=== PATIENT | female | born 1935 | race Two or more races ===

== ENCOUNTER 2020-05-31 17:46 | Inpatient (IN) | payer MEDICARE, MEDICAID ==
[~2020-05-31] VITALS: Ht 170.2 cm; Wt 62.6 kg
[2020-05-31 17:46] VITALS: BP 129/69
--- NOTE | 2020-05-31 17:46 | NUR ---
ED Nurse Note: Patient ADRIEN [id number] from [facility] due to hematuria onset today. Per EMS, pt was tested positive on 05/12/20. Pt AAOX1, verbally responsive, follows simple command. Divehi speaking only. Respirations even and unlabored, on room air. Afebrile. Covid isolation precaution observed. 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
--- NOTE | 2020-05-31 17:53 | Emergency Room Report ---
History of Present Illness General Chief Complaint: Vaginal Source: Patient Present Illness HPI 85-year-old female brought in by ambulance for complaint of generalized weakness. Patient is from a [place] [facility] facility and tested positive for COVID 3 weeks ago. She is altered and is a poor historian. According to family she is also having gross hematuria. they are concerned about her PEG tube. Patient admits to dysuria but cannot extrapolate. The patient's symptoms were gradual onset, severity was moderate, duration since several days. Quality: Aching Severity: Mild Past medical history: R sacral decub Past surgical history: G Tube Smoking: Denies Alcohol use: Denies Drug use: Denies Review of systems: CONST: +AMS; +Weakness, No fevers or chills, No night sweats PULMONARY: + productive cough, + shortness of breath CARDIAC: No chest pain, No palpitations GI: No vomiting, No diarrhea , No melena_or_BRBPR : No dysuria, + hematuria, No discharge NEURO: No new_focal_weakness_or_numbness, No confusion, No vision changes 14 point Review of Systems is otherwise negative except per HPI Physical Exam: GENERAL: Awake_alert_ nontoxic, no acute distress Spo2 98% on RA -normal EYES: Extraocular muscles are intact. Conjunctivae clear. Lids without swelling ENT: External nose and ear normal_in_appearance. Oropharynx clear. Head_ atraumatic, Moist_oral_mucosa NECK: No JVD. No meningismus. No thyromegaly. Supple. Trachea midline RESP: Course breath sounds bilaterally. Normal respiratory effort. Symmetric rise. No stridor. CARDIAC: Tachycardic. and regular rhythm on_auscultation No_significant pedal edema. ABDOMEN: Soft. Nondistended. Nontender_No_rebound_or_guarding. MSK: Normal muscle tone, without rigidity. Extremities without asymmetric deformity or swelling. SKIN: Warm and dry. No visible cyanosis or pallor NEUROLOGIC: Alert, oriented x1. Motor_and_sensation_grossly_intact. No truncal ataxia. Gait_normal Psych: Normal mood and affect, normal judgment and insight - COORDINATION OF CARE Case was discussed with: Patient , Patient's Family , Patient's Physician Any labs and imaging that were ordered were interpreted as part of the medical decision making: Medical Decision Making/Plan: 85-year-old female here with generalized weakness. Differential diagnosis includes dehydration, hypovolemia, electrolyte derangement such as hyponatremia / hypoglycemia, neuromuscular junction disorder such as myasthenia gravis, GI bleed, anemia, UTI, among others. The patient feels generally weak but has no focal neurologic deficits, abnormal muscle tone, hypo/hyperreflexia, or fatigability. No evidence of stroke, spinal cord emergency, neuromuscular junction disorder, or multiple sclerosis at this time. Lab results are concerning for hyponatremia. Sodium is 123. Likely hypovolemic hyponatremia. Patient was given NS 500 cc bolus. I suspect that this is the etiology for her generalized weakness. He is also found to have gross hematuria. Abraham was inserted without difficulty. UA shows urinary tract infection. Patient is otherwise afebrile. Doubt upper infection. Patient received antibiotics. COVID swab is also positive. Likely another reason why patient is generally weak. I spoke with Dr. Ott, and reviewed the patients presentation, workup, results, and treatment. They will admit the patient for further care and evaluation, and assume care of the patient at this time. 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: Yes - 05/12/20 COVID-19 Screening: Positive COVID-19 COVID-19 Testing Source: SEPARATOR OPERATOR Patient History Last Menstrual Period: na Nursing Documentation-PM Past Medical History: No History, Except For Hx Diabetes: Yes History Of Psychiatric Problem: Yes - dementia Physical Exam Vital Signs Date Time Temp Pulse Resp B/P (MAP) Pulse Ox O2 Delivery O2 Flow Rate FiO2 05/31/20 17:43 98.6 100 18 129/69 (89) 98 Room Air Sp02 EP Interpretation: reviewed, normal Medical Decision Making Diagnostic Impression: Primary Impression: Generalized weakness Additional Impressions: Hyponatremia syndrome Pneumonia due to COVID-19 virus UTI (urinary tract infection) Hematuria Pancreatitis EKG Diagnostic Results EDDIE Hart 12-lead EKG (interpreted by me) Time: 2146 Indication: Rhythm analysis Tracing visualized and Interpreted by me. Rhythm: Sinus tachycardia Rate: 101 bpm QTc: 454 Morphology: No_significant_ST_elevations_or_depressions, No STEMI Impression: Sinus Tachycardia Rhythm Strip Diag. Results Rhythm Strip Time: 21:40 EP Interpretation: yes Rhythm: NSR, no PVC's, no ectopy Chest X-Ray Diagnostic Results Chest X-Ray Diagnostic Results : EDDIE Benavidez Text Chest X-Ray: Views: [ 1 ] view(s) Indication: Generalized weakness Findings: Normal heart size. Mediastinum normal. No infiltrate. Impression: Torturous aorta The X-ray(s) were independently viewed and interpreted contemporaneously Electronically signed by Alexandria bergeron DO Reevaluation Time: 21:41 Last Vital Signs Date Time Temp Pulse Resp B/P (MAP) Pulse Ox O2 Delivery O2 Flow Rate FiO2 05/31/20 17:43 98.6 100 18 129/69 (89) 98 Room Air Status: improved Disposition: ADMITTED INPATIENT Admit Decision Time: 21:00 Condition: Stable Alexandria Morales D.O. May 31, 2020 17:53
--- NOTE | 2020-05-31 18:00 | NUR ---
ED Nurse Note: IV line established. Blood and urine specimen collected and sent to lab.
[2020-05-31 18:35] LABS: BASOPHILS % (AUTO) 1.4 % (0.0-2.0); EOSINOPHILS % (AUTO) 2.2 % (0.0-3.0); HEMATOCRIT 31.9 % (37.0-47.0); HEMOGLOBIN 10.5 G/DL (12.0-16.0); LYMPHOCYTES % (AUTO) 24.3 % (20.0-45.0); MEAN CORPUSCULAR VOLUME 105 FL (80-99); MONOCYTES % (AUTO) 9.1 % (1.0-10.0); PLATELET COUNT 266 K/UL (150-450); RED BLOOD COUNT 3.03 M/UL (4.20-5.40); RED CELL DISTRIBUTION WIDTH 13.9 % (11.6-14.8)
[2020-05-31 18:40] LABS: INR 0.9 (0.9-1.1)
--- NOTE | 2020-05-31 18:41 | NUR ---
ED Nurse Note: FC insertion 16fr and irrigation done per ERMd order. FC patent and draining.
--- NOTE | 2020-05-31 18:45 | NUR ---
ED Nurse Note: grand-daughter number is [phone] Addendum: 05/31/20 at 1847 by NELSON ED Nurse Note: grand-daughter (Kathleen) number is [phone]
[2020-05-31 18:46] LABS: ANION GAP 8 mmol/L (5-15); BLOOD UREA NITROGEN 56 mg/dL (7-18); CALCIUM 9.3 MG/DL (8.5-10.1); CARBON DIOXIDE 25 MMOL/L (21-32); CHLORIDE 90 MMOL/L (98-107); CREATININE 1.2 MG/DL (0.55-1.30); POTASSIUM 5.3 MMOL/L (3.5-5.1); SODIUM 123 MMOL/L (136-145)
[2020-05-31 18:47] LABS: APPEARANCE,URINE TURBID; BILIRUBIN, URINE NEGATIVE (NEGATIVE); COLOR,URINE RED; GLUCOSE, URINE (UA) NEGATIVE (NEGATIVE); KETONES,URINE 1+ (NEGATIVE); LEUKOCYTE ESTERASE ,URINE 2+ (NEGATIVE); NITRITE,URINE NEGATIVE (NEGATIVE); PH,URINE 8 (4.5-8.0); PROTEIN,URINE 4+ (NEGATIVE); UROBILINOGEN,URINE NORMAL MG/DL (0.0-1.0)
[2020-05-31 18:50] LABS: ALANINE AMINOTRANSFERASE 61 U/L (12-78); ALBUMIN 3.5 G/DL (3.4-5.0); ALBUMIN/GLOBULIN RATIO 0.8 (1.0-2.7); ALKALINE PHOSPHATASE 147 U/L (46-116); ASPARTATE AMINO TRANSFERASE 40 U/L (15-37); BILIRUBIN,TOTAL 0.5 MG/DL (0.2-1.0)
--- NOTE | 2020-05-31 18:53 | NUR ---
ED Nurse Note: Skin assessment initiated. Noted with 1 pressure sore on sacococcyx and 1 on left sacral area. Pictures taken and uploaded.
[2020-05-31] MEDS ORDERED: Omnipaque-300 100ml vial INJ PRN (19:00)
--- NOTE | 2020-05-31 19:08 | NUR ---
ED Nurse Note: Xray at bedside.
--- NOTE | 2020-05-31 19:10 | NUR ---
HAND-OFF: Report given to Shreyas DICKEY.
[2020-05-31 19:15] VITALS: BP 107/68
--- NOTE | 2020-05-31 19:15 | NUR ---
ED Nurse Note: received report from Patel DICKEY. Pt vss, nad, aaox1. covid swab collected and sent to lab.
--- NOTE | 2020-05-31 19:15 | NUR ---
ED Nurse Note: pt not able to sign consent for ct-a. ermd and primary rn signed.
--- NOTE | 2020-05-31 19:56 | Diagnostic Imaging Report ---
EXAM: XR Chest, 1 View CLINICAL HISTORY: SOB TECHNIQUE: Frontal view of the chest. COMPARISON: No relevant prior studies available. FINDINGS: Lungs: No acute cardiopulmonary disease. Pleural space: Unremarkable. No pneumothorax. Heart: Unremarkable. No cardiomegaly. Mediastinum: See below. Bones/joints: No acute abnormality Vasculature: Tortuous thoracic aorta, which accounts for the abnormal appearance of the cardia mediastinal silhouette. Lymph nodes: Recommend IV contrast enhanced CT chest, which can be performed either emergently or on an outpatient basis, depending on patient presentation to further evaluate prominent right paratracheal stripe which could represent vascular structures or lymphadenopathy. IMPRESSION: 1. No acute cardiopulmonary disease. 2. Tortuous thoracic aorta, which accounts for the abnormal appearance of the cardia mediastinal silhouette. 3. Recommend IV contrast enhanced CT chest, which can be performed either emergently or on an outpatient basis, depending on patient presentation to further evaluate prominent right paratracheal stripe which could represent vascular structures or lymphadenopathy.
[2020-05-31 21:08] VITALS: BP 119/67
--- NOTE | 2020-05-31 21:39 | NUR ---
ED Nurse Note: GAVE REPORT TO FERNANDA DICKEY
--- NOTE | 2020-05-31 22:10 | NUR ---
TRANSFER TO FLOOR: Patient transferred to [facility] in stable condition via [facility] in stable condition via transport 19 protocol as ordered, per dr. Ott. Report given to Ibis DICKEY.
--- NOTE | 2020-05-31 22:15 | NUR ---
NURSE NOTES: Pt is admitted from ER with Dx Vaginal bleed. Report received from Milton Anguiano RN ER. Vitals stable, afebrile, room air, no SOB or acute distress noted. Pt is COVID-19 positive, droplet and contact isolation initiated. Pt has a Abraham cath, draining pink urine. Pt has g-tube, clamped. Pt has sacral partial thickness wound, wound care protocol initiated, picture was taken.Pt is bedbound, pt will be turned q2hrs. Pt is confused and tugging on Abraham cath, trying to remove IV access. Pt is high fall risk, bed locked low in position,side rails up and call light within reach. Bed alarm on. Fall precaution in place. Dr. miller will be called for admission orders.
[2020-05-31] MEDS ORDERED: FERROUS SULFAT325 MG ORAL (23:04)
[2020-05-31] MEDS ORDERED: SIMVASTATIN10 MG ORAL (23:04)
--- NOTE | 2020-05-31 23:30 | NUR ---
NURSE NOTES: Admission orders received from Dr. Ruvalcaba. Received order for bilat soft wrist restraints, pt is pulling out IV access and tugging on Abraham cath. [facility] is called regarding medication list, spoke to Patricia at [facility], medication list to be faxed over.
[2020-05-31] MEDS ORDERED: Acetaminophen 500mg (ES) tab ORAL PRN (23:45)
[2020-06-01] VITALS: BP 113/68
--- NOTE | 2020-06-01 03:49 | NUR ---
NURSE NOTES: Pt is in bed, calm. No acute distress noted. Bilat soft wrist restraints sites are asymptomatic, pt repositioned. Ns running at 60ml/hr. Pt is NPO.
[2020-06-01 04:00] VITALS: BP 95/64
[2020-06-01] MEDS: NovoLOG Insulin Flexpen SUBQ SCH ×4 (06:21→20:59)
[2020-06-01 06:55] LABS: BASOPHILS % (AUTO) 0.9 % (0.0-2.0); EOSINOPHILS % (AUTO) 1.2 % (0.0-3.0); HEMATOCRIT 31.5 % (37.0-47.0); HEMOGLOBIN 10.5 G/DL (12.0-16.0); LYMPHOCYTES % (AUTO) 22.4 % (20.0-45.0); MEAN CORPUSCULAR VOLUME 104 FL (80-99); MONOCYTES % (AUTO) 12.1 % (1.0-10.0); NEUTROPHILS % (AUTO) 63.4 % (45.0-75.0); PLATELET COUNT 252 K/UL (150-450); RED BLOOD COUNT 3.04 M/UL (4.20-5.40); RED CELL DISTRIBUTION WIDTH 13.7 % (11.6-14.8); WHITE BLOOD COUNT 7.2 K/UL (4.8-10.8)
--- NOTE | 2020-06-01 07:10 | NUR ---
HAND-OFF: Report given to Donal Mcintyre RN.Pt is awake and verbal. Informed oncoming nurse that pt is fall risk and pt tries to remove medical devices.
[2020-06-01 07:24] LABS: ALANINE AMINOTRANSFERASE 58 U/L (12-78); ALBUMIN 3.2 G/DL (3.4-5.0); ALBUMIN/GLOBULIN RATIO 0.8 (1.0-2.7); ALKALINE PHOSPHATASE 121 U/L (46-116); ANION GAP 8 mmol/L (5-15); ASPARTATE AMINO TRANSFERASE 39 U/L (15-37); BILIRUBIN,TOTAL 0.6 MG/DL (0.2-1.0); BLOOD UREA NITROGEN 48 mg/dL (7-18); CALCIUM 8.9 MG/DL (8.5-10.1); CARBON DIOXIDE 25 MMOL/L (21-32); CHLORIDE 93 MMOL/L (98-107); CREATININE 1.1 MG/DL (0.55-1.30); POTASSIUM 4.8 MMOL/L (3.5-5.1); SODIUM 126 MMOL/L (136-145)
[2020-06-01 08:00] VITALS: BP 125/65
--- NOTE | 2020-06-01 09:01 | History & Physical ---
History and Physical History & Physicial seen and examined . Full Dictation completed Tiffanie Ott MD Jun 01, 2020 09:01
--- NOTE | 2020-06-01 09:05 | General Progress Note ---
Assessment/Plan Assessment/Plan: seen and examined . Full dictation in progress A/P: 1- HypoNatremia 2- Anemia Plan: start levothyroxin iron panel Nephro, ID reviewed Subjective Allergies: Coded Allergies: No Known Allergies (Unverified , 05/31/20) Objective Last 24 Hour Vital Signs Date Time Temp Pulse Resp B/P (MAP) Pulse Ox O2 Delivery O2 Flow Rate FiO2 06/01/20 08:00 97.7 99 18 125/65 (85) 95 06/01/20 04:00 98.2 105 20 95/64 (74) 97 06/01/20 00:40 Room Air 06/01/20 00:00 98.2 101 20 113/68 (83) 99 05/31/20 22:10 98.7 103 18 119/67 98 Room Air 98 05/31/20 21:08 98.7 103 18 119/67 98 Room Air 05/31/20 19:15 105 18 Room Air 98 05/31/20 19:15 105 18 107/68 98 Room Air 05/31/20 17:46 98.6 112 18 129/69 98 Room Air 05/31/20 17:43 98.6 100 18 129/69 (89) 98 Room Air Intake and Output 05/31/20 06/01/20 19:00 07:00 Intake Total 740 ml Output Total 500 ml Balance 240 ml Intake IV Total 740 ml Output Urine Total 500 ml Laboratory Tests 05/31/20 18:15: White Blood Count 8.0, Red Blood Count 3.03L, Hemoglobin 10.5L, Hematocrit 31.9L , Mean Corpuscular Volume 105H, Mean Corpuscular Hemoglobin 34.6H, Mean Corpuscular Hemoglobin Concent 32.9, Red Cell Distribution Width 13.9, Platelet Count 266, Mean Platelet Volume 6.9, Neutrophils (%) (Auto) 63.0, Lymphocytes (% ) (Auto) 24.3, Monocytes (%) (Auto) 9.1, Eosinophils (%) (Auto) 2.2, Basophils ( %) (Auto) 1.4, Prothrombin Time 10.5, Prothromb Time International Ratio 0.9, Activated Partial Thromboplast Time 24, Urine Color Red, Urine Appearance Turbid , Urine pH 8, Urine Specific Jones 1.015, Urine Protein 4+H, Urine Glucose (UA ) Negative, Urine Ketones 1+H, Urine Blood 4+H, Urine Nitrite Negative, Urine Bilirubin Negative, Urine Urobilinogen Normal, Urine Leukocyte Esterase 2+H, Urine RBC TntcH, Urine WBC 5-10H, Urine Squamous Epithelial Cells None, Urine Bacteria ManyH, Sodium Level 123L, Potassium Level 5.3H, Chloride Level 90L, Carbon Dioxide Level 25, Anion Gap 8, Blood Urea Nitrogen 56H, Creatinine 1.2, Estimat Glomerular Filtration Rate 42.5, Glucose Level 123H, Calcium Level 9.3, Total Bilirubin 0.5, Aspartate Amino Transf (AST/SGOT) 40H, Alanine Aminotransferase (ALT/SGPT) 61, Alkaline Phosphatase 147H, Troponin I 0.000, Total Protein 7.8, Albumin 3.5, Globulin 4.3, Albumin/Globulin Ratio 0.8L, Lipase 676H 06/01/20 05:36: POC Whole Blood Glucose 111H 06/01/20 06:10: White Blood Count 7.2, Red Blood Count 3.04L, Hemoglobin 10.5L, Hematocrit 31.5L , Mean Corpuscular Volume 104H, Mean Corpuscular Hemoglobin 34.4H, Mean Corpuscular Hemoglobin Concent 33.2, Red Cell Distribution Width 13.7, Platelet Count 252, Mean Platelet Volume 7.0, Neutrophils (%) (Auto) 63.4, Lymphocytes (% ) (Auto) 22.4, Monocytes (%) (Auto) 12.1H, Eosinophils (%) (Auto) 1.2, Basophils (%) (Auto) 0.9, Sodium Level 126L, Potassium Level 4.8, Chloride Level 93L, Carbon Dioxide Level 25, Anion Gap 8, Blood Urea Nitrogen 48H, Creatinine 1.1, Estimat Glomerular Filtration Rate 47.0, Glucose Level 106, Calcium Level 8.9, Total Bilirubin 0.6, Aspartate Amino Transf (AST/SGOT) 39H, Alanine Aminotransferase (ALT/SGPT) 58, Alkaline Phosphatase 121H, Total Protein 7.3, Albumin 3.2L, Globulin 4.1, Albumin/Globulin Ratio 0.8L, Hemoglobin A1c 5.5, Thyroid Stimulating Hormone (TSH) 8.754H Height (Feet): 5 Height (Inches): 7.00 Weight (Pounds): 140 Tiffanie Ott MD Jun 01, 2020 09:05
[2020-06-01] MEDS ORDERED: Albuterol 90mcg Inhaler 8gm INH PRN (09:15)
--- NOTE | 2020-06-01 09:17 | Consultation ---
Sherri Henry MONORAIL CAR OPERATOR 06/01/20 0917: History of Present Illness General Date patient seen: Jun 01, 2020 Time patient seen: 08:00 Chief Complaint: Generalized Weakness Referring physician: Dr Ott Reason for Consultation: COVID infection Present Illness HPI 85 years old female, resident of long-term facility, with past medical history of dysphagia, feeding by G-tube, diabetes mellitus, hypercholesterolemia , depression, dementia, was tested positive for COVID at the facility 3 weeks ago. According to the family , patient had gross hematuria. Patient by herself reported dysuria Repeated rapid COVID testing in ED was positive as well. Sodium 123, potassium 5.3. BUN 56, creatinine 1.2. Glucose 123. Hemoglobin A1c 5.5. AST 40, ALT 61. Lipase 676. Troponin negative. TSH 8.754. Urinalysis with evidence of gross hematuria and findings suggestive of UTI Chest x-ray demonstrated no acute cardiopulmonary pathology. Noted prominent right paratracheal stripe which could represent vascular structures or lymphadenopathy. In emergency department patient received normal saline bolus ,. Abraham catheter was inserted without difficulties. Patient received empiric antibiotic and subsequently admitted to medical surgical floor. Pulmonary consult was requested to help with management of COVID infection Allergies: Coded Allergies: No Known Allergies (Unverified , 05/31/20) Medication History Scheduled Ferrous Sulfate* (Ferrous Sulfate*), 325 MG ORAL DAILY, (Reported) Simvastatin (Zocor), 10 MG ORAL BEDTIME, (Reported) Patient History Healthcare decision maker N Resuscitation status Full code Advanced Directive on File Review of Systems ROS Narrative pt demented and unable to provide any meaningful ROS Physical Exam General Appearance: no apparent distress, other - thin Andorran speaking bedridden female in NAD Lines, tubes and drains: peripheral HEENT: normocephalic, atraumatic, anicteric, PERRL Neck: supple Respiratory/Chest: lungs clear - with moderate ait exchange , no accessory muscle use Cardiovascular/Chest: normal rate Abdomen: non tender, soft, feeding tube - G tube , site clean, covered with dressing Extremities: no calf tenderness, no edema Neurologic: abnormal gait, alert, responsive - confused Musculoskeletal: atrophy - BLE Last 24 Hour Vital Signs Date Time Temp Pulse Resp B/P (MAP) Pulse Ox O2 Delivery O2 Flow Rate FiO2 06/01/20 08:00 97.7 99 18 125/65 (85) 95 06/01/20 04:00 98.2 105 20 95/64 (74) 97 06/01/20 00:40 Room Air 06/01/20 00:00 98.2 101 20 113/68 (83) 99 05/31/20 22:10 98.7 103 18 119/67 98 Room Air 98 05/31/20 21:08 98.7 103 18 119/67 98 Room Air 05/31/20 19:15 105 18 Room Air 98 05/31/20 19:15 105 18 107/68 98 Room Air 05/31/20 17:46 98.6 112 18 129/69 98 Room Air 05/31/20 17:43 98.6 100 18 129/69 (89) 98 Room Air Intake and Output 05/31/20 06/01/20 19:00 07:00 Intake Total 740 ml Output Total 500 ml Balance 240 ml Intake IV Total 740 ml Output Urine Total 500 ml Laboratory Tests Test 05/31/20 18:15 06/01/20 05:36 06/01/20 06:10 White Blood Count 8.0 K/UL (4.8-10.8) 7.2 K/UL (4.8-10.8) Red Blood Count 3.03 M/UL (4.20-5.40) L 3.04 M/UL (4.20-5.40) L Hemoglobin 10.5 G/DL (12.0-16.0) L 10.5 G/DL (12.0-16.0) L Hematocrit 31.9 % (37.0-47.0) L 31.5 % (37.0-47.0) L Mean Corpuscular Volume 105 FL (80-99) H 104 FL (80-99) H Mean Corpuscular Hemoglobin 34.6 PG (27.0-31.0) H 34.4 PG (27.0-31.0) H Mean Corpuscular Hemoglobin Concent 32.9 G/DL (32.0-36.0) 33.2 G/DL (32.0-36.0) Red Cell Distribution Width 13.9 % (11.6-14.8) 13.7 % (11.6-14.8) Platelet Count 266 K/UL (150-450) 252 K/UL (150-450) Mean Platelet Volume 6.9 FL (6.5-10.1) 7.0 FL (6.5-10.1) Neutrophils (%) (Auto) 63.0 % (45.0-75.0) 63.4 % (45.0-75.0) Lymphocytes (%) (Auto) 24.3 % (20.0-45.0) 22.4 % (20.0-45.0) Monocytes (%) (Auto) 9.1 % (1.0-10.0) 12.1 % (1.0-10.0) H Eosinophils (%) (Auto) 2.2 % (0.0-3.0) 1.2 % (0.0-3.0) Basophils (%) (Auto) 1.4 % (0.0-2.0) 0.9 % (0.0-2.0) Prothrombin Time 10.5 SEC (9.30-11.50) Prothromb Time International Ratio 0.9 (0.9-1.1) Activated Partial Thromboplast Time 24 SEC (23-33) Urine Color Red Urine Appearance Turbid Urine pH 8 (4.5-8.0) Urine Specific Frazee 1.015 (1.005-1.035) Urine Protein 4+ (NEGATIVE) H Urine Glucose (UA) Negative (NEGATIVE) Urine Ketones 1+ (NEGATIVE) H Urine Blood 4+ (NEGATIVE) H Urine Nitrite Negative (NEGATIVE) Urine Bilirubin Negative (NEGATIVE) Urine Urobilinogen Normal MG/DL (0.0-1.0) Urine Leukocyte Esterase 2+ (NEGATIVE) H Urine RBC Tntc /HPF (0 - 2) H Urine WBC 5-10 /HPF (0 - 2) H Urine Squamous Epithelial Cells None /LPF (NONE/OCC) Urine Bacteria Many /HPF (NONE) H Sodium Level 123 MMOL/L (136-145) L 126 MMOL/L (136-145) L Potassium Level 5.3 MMOL/L (3.5-5.1) H 4.8 MMOL/L (3.5-5.1) Chloride Level 90 MMOL/L (98-107) L 93 MMOL/L (98-107) L Carbon Dioxide Level 25 MMOL/L (21-32) 25 MMOL/L (21-32) Anion Gap 8 mmol/L (5-15) 8 mmol/L (5-15) Blood Urea Nitrogen 56 mg/dL (7-18) H 48 mg/dL (7-18) H Creatinine 1.2 MG/DL (0.55-1.30) 1.1 MG/DL (0.55-1.30) Estimat Glomerular Filtration Rate 42.5 mL/min (>60) 47.0 mL/min (>60) Glucose Level 123 MG/DL (74-106) H 106 MG/DL (74-106) Calcium Level 9.3 MG/DL (8.5-10.1) 8.9 MG/DL (8.5-10.1) Total Bilirubin 0.5 MG/DL (0.2-1.0) 0.6 MG/DL (0.2-1.0) Aspartate Amino Transf (AST/SGOT) 40 U/L (15-37) H 39 U/L (15-37) H Alanine Aminotransferase (ALT/SGPT) 61 U/L (12-78) 58 U/L (12-78) Alkaline Phosphatase 147 U/L (46-116) H 121 U/L (46-116) H Troponin I 0.000 ng/mL (0.000-0.056) Total Protein 7.8 G/DL (6.4-8.2) 7.3 G/DL (6.4-8.2) Albumin 3.5 G/DL (3.4-5.0) 3.2 G/DL (3.4-5.0) L Globulin 4.3 g/dL 4.1 g/dL Albumin/Globulin Ratio 0.8 (1.0-2.7) L 0.8 (1.0-2.7) L Lipase 676 U/L (73-393) H POC Whole Blood Glucose 111 MG/DL (74-106) H Hemoglobin A1c 5.5 % (4.3-6.0) Thyroid Stimulating Hormone (TSH) 8.754 uiU/mL (0.358-3.740) Microbiology Date/Time Source Procedure Growth Status 05/31/20 19:10 Nasopharynx SARS-CoV-2 RdRp Gene Assay - Final Complete 05/31/20 18:15 Urine,Clean Catch Urine Culture - Preliminary NO GROWTH Resulted 05/31/20 18:35 Rectum Received Height (Feet): 5 Height (Inches): 7.00 Weight (Pounds): 140 Medications Current Medications Medications (Trade) Dose Ordered Sig/Boo Route PRN Reason Start Time Stop Time Status Last Admin Dose Admin Acetaminophen (Tylenol) 500 mg Q6HR PRN ORAL Mild Pain (Pain Scale 1-3) 05/31/20 23:45 06/30/20 23:44 Acetaminophen (Tylenol) 650 mg Q6H PRN ORAL Temp >100.5 05/31/20 23:45 06/30/20 23:44 Dextrose (Dextrose 50%) 25 ml Q30M PRN IV Hypoglycemia 06/01/20 00:15 08/30/20 00:14 Dextrose (Dextrose 50%) 50 ml Q30M PRN IV Hypoglycemia 06/01/20 00:15 08/30/20 00:14 Insulin Aspart (NovoLOG) BEFORE MEALS AND HS SUBQ 06/01/20 06:30 08/30/20 06:29 Iohexol (OMNIPAQUE-300 100ml) 100 ml NOW PRN INJ Radiology Procedure 05/31/20 19:00 06/02/20 19:00 Morphine Sulfate (Morphine Sulfate) 2 mg Q6HR PRN IVP Severe Pain (Pain Scale 7-10) 05/31/20 23:45 06/07/20 23:44 Ondansetron HCl (Zofran) 4 mg Q6H PRN IVP Nausea & Vomiting 05/31/20 23:45 06/30/20 23:44 Pantoprazole (Protonix) 40 mg DAILY ORAL 06/01/20 09:00 07/01/20 08:59 06/01/20 08:27 Assessment/Plan Assessment/Plan: ASSESSMENT COVID infection Hematuria vs vaginal bleeding Probably UTI Hyponatremia/ likely hypovolemic hypo Na CHRIS, probably due to dehydration Dysphagia, feeding by G tube DM Dementia Elevated TSH , probably hypothyroidism Elevated lipase PLAN OF CARE MS floor isolation for COVID start steroids MDI check inflam markers to acces risk for cytokine storm fup with CXR, initial stable consider CT chest -> for prominent right paratracheal stripe seen on CXR r/o adenopathy. not emergent, can be done as OP when COVID free asp precautions, GT feeding DVT prophayxlis with Lovenox GI prophylaxis abx for UTI fup with UCX get TV US, given hematuria , possible vaginal bleeding monitor HH, abd US as ordered by attending trend lipase BS management with sensitive SSI TSH elevated; started on levothyroxine per attending , repeat TFT in 4 wks supportive care thank you for a consult! case discussed and evaluated by supervising physician! Orlando Vera MD 06/01/20 1123: History of Present Illness General Chief Complaint: Generalized Weakness Present Illness Allergies: Coded Allergies: No Known Allergies (Unverified , 05/31/20) Medication History Scheduled Ferrous Sulfate* (Ferrous Sulfate*), 325 MG ORAL DAILY, (Reported) Simvastatin (Zocor), 10 MG ORAL BEDTIME, (Reported) Assessment/Plan Assessment/Plan: Patient seen and examined with MONORAIL CAR OPERATOR. Agree with above A&P as it reflects our joint deliberations Sherri Henry NP Jun 01, 2020 09:17 Orlando Vera MD Jun 01, 2020 11:23
[2020-06-01 09:19] LABS: % IRON SATURATION 22 % (15-50); IRON 66 ug/dL (50-175); TOTAL IRON BINDING CAPACITY 300 ug/dL (250-450)
--- NOTE | 2020-06-01 09:52 | Consultation ---
Consult Note Consult Note I am asked to evaluate the patient at the request of Dr. Ott for hyponatremia Patient seen, examined, discussed with RN Donal 85-year-old female brought in by ambulance for complaint of generalized weakness. Patient is from a assisted facility and tested positive for COVID 3 weeks ago. She is altered and is a poor historian. According to family she is also having gross hematuria. they are concerned about her PEG tube. Patient admits to dysuria but cannot extrapolate. The patient's symptoms were gradual onset, severity was moderate, duration since several days. Quality: Aching Severity: Mild Past medical history: R sacral decub Past surgical history: G Tube COVID-19 Screening Contact w/high risk pt: Yes Experienced COVID-19 symptoms?: No COVID-19 Testing performed ACTUARIAL TRAINEE: Yes - 05/12/20 COVID-19 Screening: Positive COVID-19 COVID-19 Testing Source: TRAINING CONSULTANT Past Medical History: No History, Except For Hx Diabetes: Yes History Of Psychiatric Problem: Yes - dementia Vital Signs Date Time Temp Pulse Resp B/P (MAP) Pulse Ox O2 Delivery O2 Flow Rate FiO2 05/31/20 17:43 98.6 100 18 129/69 (89) 98 Room Air PHYSICAL EXAMINATION: HEAD AND NECK: Atraumatic and normocephalic. CHEST: Clear to auscultation. HEART: S1, S2. Regular rate and rhythm. ABDOMEN: Soft MUSCULOSKELETAL: Atrophied musculature. Lateralized motor deficit. NEUROLOGIC: The patient is malnourished. The patient appears delirious. LABORATORY DATA: Dated 05/31/2020, hemoglobin 10.5, platelet count 266,000. Sodium 123, potassium 5.3. Lipase 676. AST 40. MCV 105. . Assessment/Plan 1. COVID-19 related deconditioning and general weakness. 2. Metabolic encephalopathy. 3. Hyponatremia. 4. Hyperkalemia. 5. Elevated lipase. Level of 676. 6. Hypothyroidism. Elevated TSH level. 7. Cachexia and malnourishment. 8. Macrocytic anemia. Labs related to hyponatremia and anemia ordered 3% saline 250 cc once Anemia work-up Monitor electrolytes Per orders Mendoza Ponce MD Jun 01, 2020 09:52
--- NOTE | 2020-06-01 10:15 | History and Physical Report ---
DATE OF ADMISSION: 05/31/2020 SOURCE OF INFORMATION: Patient and EMR. HISTORY OF PRESENT ILLNESS: The patient is an 85-year-old female. At the time of evaluation, the patient is confused and is not cooperative with source of information remain the emergency room physician. Reportedly, the patient has been brought from skilled nursing after diagnosis of coronavirus with general weakness. Also has been reported to have hematuria. Remainder of information not obtainable. REVIEW OF SYSTEMS: Not obtainable. FAMILY HISTORY: Reviewed and noncontributory. PAST MEDICAL AND SURGICAL HISTORY: Including but not limited to, hyperlipidemia and anemia. SOCIAL HISTORY: The patient is residing in a care home facility. Remainder unobtainable. CURRENT HOSPITAL MEDICATIONS: Including NovoLog, Zofran. PHYSICAL EXAMINATION: VITAL SIGNS: Blood pressure 120/80, temperature 98.2, pulse rate 112, respiratory rate 18. HEAD AND NECK: Atraumatic and normocephalic. CHEST: Clear to auscultation. HEART: S1, S2. Regular rate and rhythm. ABDOMEN: Soft MUSCULOSKELETAL: Atrophied musculature. Lateralized motor deficit. NEUROLOGIC: The patient is malnourished. The patient appears delirious. LABORATORY DATA: Dated 05/31/2020, hemoglobin 10.5, platelet count 266,000. Sodium 123, potassium 5.3. Lipase 676. AST 40. MCV 105. ASSESSMENT: 1. COVID-19 related deconditioning and general weakness. 2. Metabolic encephalopathy. 3. Hyponatremia. 4. Hyperkalemia. 5. Abnormal lipase. 6. Hypothyroidism. 7. Cachexia and malnourishment. 8. Macrocytic anemia. PLAN OF CARE: I will continue with supportive treatment. We will keep the patient NPO. Non behavioral restraint. Check a hepatitis panel. Check a TSH. Infectious Disease and Nephrology, have been consulted. Time of this dictation does not reflect the actual time of encounter. Tiffanie Ott M.D. DR: JAREK JOB#: [id number] CC: SHARONDA
[2020-06-01 10:22] LABS: PHOSPHORUS 4.5 MG/DL (2.5-4.9)
[2020-06-01] MEDS: Morphine Sulfate 2mg/ml Inj(IV/IM USE ONLY) IVP PRN ×2 (10:56→17:01)
[2020-06-01] MEDS ORDERED: NaCl 3% 500ml 500 ML IV ONE (11:00)
--- NOTE | 2020-06-01 11:33 | NUR ---
NURSE NOTES: RN SPOKE TO LAZARO IN ULTRASOUND. PER LAZARO, THEY WILL DO US TRANSVAGINAL BUT HOLD ON US ABD DUE TO PT BEING COVID POSITIVE.
[2020-06-01 11:34] VITALS: BP 106/68
--- NOTE | 2020-06-01 14:07 | NUR ---
NURSE NOTES:WOUND CARE NOTES:Pt presented on admission with Sacral DTPI (L)9cm x (W)9.5cm. Scattered Purpuric area within maroon base.Borders are irregular. Sheared area noted to L Buttocks. Pt complained site tender when minimally palpated. R Heel including Plantar aspect is boggy with non-Blanching erythema(L)&.5cm x (W)6cm. L Heel Including Plantar aspect Boggy with non-Blanchable erythema.(L)6cm x (W)8cm. Non-blanchable erythema without fluctuance/induration L Hallux. Tx.Plan:Apply Moisture Barrier paste to Sacrum. Cover with Optifoam drsg. Change every 3 days and prn. Apply Cavilon Skin Barrier to both heels. Cover each heel with Optifoam drsg. Change every 7 days and prn. Apply Cavilon to R and L Hallux. Cover each site with Optifoam drsgs. Change every 7 days and prn. Apply Cavilon Skin Barrier to Malleoli. Cover each site with Optifoam drsgs. Change every 7 days and prn. Reposition at least every 2hours or as tolerated. Off-load heels with pillow.
--- NOTE | 2020-06-01 14:14 | NUR ---
NURSE NOTES: TRANSVAGINAL ULTRASOUND WAS ATTEMPTED AT BEDSIDE. PER US TECH LAZARO, NOTHING IS VISUALIZED. CRN MADE AWARE. PT KEEPS PULLING ON TIPTON CATH DESPITE BILATERAL SOFT WRIST RESTRAINTS. PT UNABLE TO UNDERSTAND RN TEACHING ON NOT PULLING ON TIPTON D/T POSSIBLE TRAUMA. WOUND CARE DONE AT BEDSIDE WITH WOUND NURSE GATO. PICTURES UPLOADED. PT WAS REPOSITIONED. GTUBE FEEDING GLUCERNA 1.2 STARTED AT 20ML/HR. GOAL RATE IS 40ML/HR. PT IN HIGH RASCON'S POSITION WITH HOB ELEVATED. BED IN LOWEST POSITION WITH BEDSIDE RAILS X3 RAISED. BED ALARM ON. SKIN ON BILATERAL WRISTS ARE INTACT, NO SWELLING NOTED, BILATERAL RADIAL PULSES PALPABLE. WILL CONTINUE TO MONITOR.
--- NOTE | 2020-06-01 15:47 | NUR ---
NURSE NOTES: PT FOUND LOW IN BED, TUGGING ON TIPTON CATH. PT HAD DISCONNECTED TIPTON CATH FROM FLUSH SITE. RN RE-ATTACHED TIPTON CATH. RN DEFLATED TIPTON BALLOON AND PUSHED CATHETER APPROX 4 INCHES INTO URETHRA. TIPTON DRAINING BROWN/REDDISH COLORED URINE. NO CLOTS NOTED. PT WAS REPOSITIONED AND BILATERAL SOFT WRIST RESTRAINTS RE-APPLIED. PT IN NO APPARENT DISTRESS AT THIS TIME.
[2020-06-01 16:00] VITALS: BP 140/71
[2020-06-01] MEDS: Docusate 100mg/10ml Liq GT SCH (17:28)
--- NOTE | 2020-06-01 19:21 | NUR ---
HAND-OFF: Report given to Mickey HILL RN.
[2020-06-01 20:00] VITALS: BP 130/68
--- NOTE | 2020-06-01 20:06 | NUR ---
NURSE NOTES: Report received from Donal DICKEY. Patient is awake and alert x 1. Patient is noted to be on room air, does not appear to be in respiratory distress at this time. Patient is noted to have G tube with Glucerna 1.2 running. The goal rate is 40 cc / hr, Issa DICKEY checked residual, no residual, increased rate from 25 cc / hr to 30 cc / hr. Will continue monitor patient's tolerance and work towards goal rate. Patient is noted to have indwelling mabry draining dark spencer urine. It was endorsed to Issa DICKYE that patient tugs at Mabry catheter and the bloody urine is likely from trauma and that the MD is aware. Patient is noted to be in bilateral soft wrist restraints due to patient pulling at lines, no edema noted, pules present, and able to move extremities. Patient was noted to have low sodium laboratory values, is currently receiving 3 % sodium via IV per MD orders. This is a one time order. Patient is noted to be on droplet and contact isolation due to testing positive for covid 19. Most recent positive covid 19 test on May 31, 2020. Bed is locked, alarmed, and in lowest position. Will continue to follow plan of care.
--- NOTE | 2020-06-01 22:30 | NUR ---
NURSE NOTES: Patient appears to be tolerating feeding well. No emesis. No residual. Increased feeding to 35 cc / hr. Will continue to monitor tolerance and work towards goal rate of 40 cc / hr.
[2020-06-02] VITALS: BP 115/69
--- NOTE | 2020-06-02 00:30 | NUR ---
NURSE NOTES: Patient appears to be tolerating feeding well. No residual from G tube. Glucerna 1.2 creased to a rate of 40 cc / hr. This is the goal rate. Will continue to monitor and assess how patient tolerates feeding.
--- NOTE | 2020-06-02 02:45 | NUR ---
NURSE NOTES: Patient found to again be shifted towards the bottom of bed. Patient has required frequent repositioning and boosting in the bed throughout the shift. patient is able to pull at Abraham catheter when no properly positioned even with restraints. With help of nursing home physician bed bath given, linens changed, restraints re-applied, new Abraham anchor put in place. Patient again boosted and repositioned. Pillows in place to off load pressure from sacrum. Patients urine is now noted to be gross hematuria with clots, this is likely causes from the patient continuing to pull at Abraham. Issa DICKEY checked Abraham, Abraham still patent and in place. Hematuria is now however a brighter red than in the beginning of the shift.
[2020-06-02 04:00] VITALS: BP 124/77
[2020-06-02 05:12] LABS: BASOPHILS % (AUTO) 0.8 % (0.0-2.0); EOSINOPHILS % (AUTO) 0.1 % (0.0-3.0); HEMATOCRIT 28.3 % (37.0-47.0); HEMOGLOBIN 9.1 G/DL (12.0-16.0); LYMPHOCYTES % (AUTO) 21.1 % (20.0-45.0); MEAN CORPUSCULAR VOLUME 106 FL (80-99); MONOCYTES % (AUTO) 12.8 % (1.0-10.0); NEUTROPHILS % (AUTO) 65.3 % (45.0-75.0); PLATELET COUNT 258 K/UL (150-450); RED BLOOD COUNT 2.68 M/UL (4.20-5.40); RED CELL DISTRIBUTION WIDTH 13.7 % (11.6-14.8); WHITE BLOOD COUNT 6.4 K/UL (4.8-10.8)
[2020-06-02 05:54] LABS: ALANINE AMINOTRANSFERASE 66 U/L (12-78); ALBUMIN 3.2 G/DL (3.4-5.0); ALBUMIN/GLOBULIN RATIO 0.8 (1.0-2.7); ALKALINE PHOSPHATASE 122 U/L (46-116); ANION GAP 9 mmol/L (5-15); ASPARTATE AMINO TRANSFERASE 48 U/L (15-37); BILIRUBIN,TOTAL 0.5 MG/DL (0.2-1.0); BLOOD UREA NITROGEN 42 mg/dL (7-18); CARBON DIOXIDE 24 MMOL/L (21-32); CHLORIDE 104 MMOL/L (98-107); FERRITIN 448 NG/ML (8-388); LACTATE DEHYDROGENASE 206 U/L (81-234); POTASSIUM 3.9 MMOL/L (3.5-5.1); SODIUM 137 MMOL/L (136-145)
[2020-06-02] MEDS: NovoLOG Insulin Flexpen SUBQ SCH ×4 (06:03→17:39)
--- NOTE | 2020-06-02 06:59 | NUR ---
HAND-OFF: Report given to Donal DICKEY. Endorsed that patient was agitated throughout the shift. Endorsed that patient's Abraham is producing bright red hematuria. Patient is currently in stable condition.
--- NOTE | 2020-06-02 07:18 | NUR ---
NURSE NOTES: PER REPORT, PT RESTLESS ALL NIGHT, PULLING ON TIPTON CATHETER AND OTHER MEDICAL DEVICES. NEEDS CONSTANT SUPERVISION AND REPOSITIONING. UPON ROUNDING, PT IS RESTLESS AND BLANKETS AND PILLOWS ON THE FLOOR. PT IS TALKING TO HERSELF IN [place] AND UNABLE TO BE CALMED THROUGH TALK THERAPY. RN MADE DR WICK AWARE WITH NEW ORDERS TO START RISPERDAL 0.5MG DAILY, SEROQUEL 25MG PO TID PRN RESTLESSNESS AND PHYSICIAN CONSULT FOR DR SEQUEIRA. ORDERS ENTERED. TIPTON IS INTACT, DRAINING RED URINE BY GRAVITY.
[2020-06-02] MEDS: Morphine Sulfate 2mg/ml Inj(IV/IM USE ONLY) IVP PRN ×2 (07:30→15:10)
[2020-06-02 08:00] VITALS: BP 102/62
[2020-06-02] MEDS: Docusate 100mg/10ml Liq GT SCH ×3 (08:57→17:25)
[2020-06-02] MEDS ORDERED: Enoxaparin 40mg Inj SUBQ SCH (09:00)
--- NOTE | 2020-06-02 09:06 | Pulmonology Progress Note ---
Subjective Allergies: Coded Allergies: No Known Allergies (Unverified , 05/31/20) Subjective in COVID isolation, remains afebrile , no leukocytosis pulse ox stable on RA Objective Last 24 Hour Vital Signs Date Time Temp Pulse Resp B/P (MAP) Pulse Ox O2 Delivery O2 Flow Rate FiO2 06/02/20 08:00 97.7 65 18 102/62 (75) 94 06/02/20 04:00 98.6 96 20 124/77 (93) 96 06/02/20 02:45 Room Air 06/02/20 00:00 98.9 96 20 115/69 (84) 96 06/01/20 21:00 Room Air 06/01/20 20:00 98.2 90 18 130/68 (88) 95 06/01/20 16:00 96.8 99 18 140/71 (94) 99 06/01/20 11:34 98.6 94 18 106/68 (81) 98 Intake and Output 06/01/20 06/02/20 19:00 07:00 Intake Total 465 ml 725 ml Output Total 400 ml Balance 65 ml 725 ml Intake Free Water 70 ml 60 ml IV Total 240 ml 260 ml Tube Feeding 155 ml 405 ml Output Urine Total 400 ml Objective General Appearance: no apparent distress, thin Italian speaking bedridden female in NAD Lines, tubes and drains: peripheral HEENT: normocephalic, atraumatic, anicteric, PERRL Neck: supple Respiratory/Chest: lungs clear - with moderate ait exchange , no accessory muscle use Cardiovascular/Chest: normal rate Abdomen: non tender, soft, feeding tube - G tube , site clean, covered with dressing Extremities: no calf tenderness, no edema Neurologic: abnormal gait, alert, responsive - confused Musculoskeletal: atrophy - BLE Microbiology Date/Time Source Procedure Growth Status 05/31/20 19:10 Nasopharynx SARS-CoV-2 RdRp Gene Assay - Final Complete 05/31/20 18:15 Urine,Clean Catch Urine Culture - Preliminary Resulted 05/31/20 18:35 Rectum Received Laboratory Tests 06/01/20 10:45: Urine Osmolality 544H, Urine Random Sodium 44 06/01/20 11:05: POC Whole Blood Glucose 108H 06/02/20 04:00: White Blood Count 6.4, Red Blood Count 2.68L, Hemoglobin 9.1L, Hematocrit 28.3L , Mean Corpuscular Volume 106H, Mean Corpuscular Hemoglobin 34.1H, Mean Corpuscular Hemoglobin Concent 32.3, Red Cell Distribution Width 13.7, Platelet Count 258, Mean Platelet Volume 6.5, Neutrophils (%) (Auto) 65.3, Lymphocytes (% ) (Auto) 21.1, Monocytes (%) (Auto) 12.8H, Eosinophils (%) (Auto) 0.1, Basophils (%) (Auto) 0.8, D-Dimer 16.52H, Sodium Level 137#, Potassium Level 3.9 , Chloride Level 104, Carbon Dioxide Level 24, Anion Gap 9, Blood Urea Nitrogen 42H, Creatinine 1.0, Estimat Glomerular Filtration Rate 52.5, Glucose Level 125H , Osmolality 299, Uric Acid 6.2, Calcium Level 9.0, Phosphorus Level 4.0, Magnesium Level 2.4, Ferritin 448H, Total Bilirubin 0.5, Aspartate Amino Transf (AST/SGOT) 48H, Alanine Aminotransferase (ALT/SGPT) 66, Alkaline Phosphatase 122H, Lactate Dehydrogenase 206, C-Reactive Protein, Quantitative 2.3H, Total Protein 7.1, Albumin 3.2L, Globulin 3.9, Albumin/Globulin Ratio 0.8L, Lipase 362 06/02/20 05:50: POC Whole Blood Glucose 116H Current Medications Medications (Trade) Dose Ordered Sig/Boo Route PRN Reason Start Time Stop Time Status Last Admin Dose Admin Acetaminophen (Tylenol) 500 mg Q6HR PRN ORAL Mild Pain (Pain Scale 1-3) 05/31/20 23:45 06/30/20 23:44 Acetaminophen (Tylenol) 650 mg Q6H PRN ORAL Temp >100.5 05/31/20 23:45 06/30/20 23:44 Albuterol Sulfate (Proventil MDI) 2 puff Q4H PRN INH Shortness of Breath 06/01/20 09:15 08/30/20 09:14 Dexamethasone (Decadron) 6 mg DAILY ORAL 06/01/20 10:00 06/05/20 12:00 06/01/20 10:53 Dextrose (Dextrose 50%) 25 ml Q30M PRN IV Hypoglycemia 06/01/20 00:15 08/30/20 00:14 Dextrose (Dextrose 50%) 50 ml Q30M PRN IV Hypoglycemia 06/01/20 00:15 08/30/20 00:14 Docusate Sodium (Colace) 100 mg THREE TIMES A DAY GT 06/01/20 18:00 07/01/20 17:59 06/01/20 17:28 Enoxaparin Sodium (Lovenox) 40 mg DAILY SUBQ 06/02/20 09:00 08/31/20 08:59 Insulin Aspart (NovoLOG) BEFORE MEALS AND HS SUBQ 06/01/20 06:30 08/30/20 06:29 Iohexol (OMNIPAQUE-300 100ml) 100 ml NOW PRN INJ Radiology Procedure 05/31/20 19:00 06/02/20 19:00 Levothyroxine Sodium (Synthroid) 50 mcg DAILY@0630 ORAL 06/02/20 06:30 07/02/20 06:29 06/02/20 06:28 Morphine Sulfate (Morphine Sulfate) 2 mg Q6HR PRN IVP Severe Pain (Pain Scale 7-10) 05/31/20 23:45 06/07/20 23:44 06/02/20 07:30 Ondansetron HCl (Zofran) 4 mg Q6H PRN IVP Nausea & Vomiting 05/31/20 23:45 06/30/20 23:44 Pantoprazole (Protonix) 40 mg BID ORAL 06/01/20 18:00 07/01/20 08:59 06/01/20 17:29 Quetiapine Fumarate (SEROqueL) 25 mg Q8H PRN ORAL Restlessness 06/02/20 07:30 07/17/20 07:29 06/02/20 07:30 Risperidone (RisperDAL) 0.5 mg DAILY ORAL 06/02/20 09:00 07/17/20 08:59 Assessment/Plan Assessment/Plan ASSESSMENT COVID infection Hematuria vs vaginal bleeding Hyponatremia CHRIS, probably due to dehydration Dysphagia, feeding by G tube DM Dementia Elevated TSH , probably hypothyroidism Elevated lipase PLAN OF CARE MS floor isolation for COVID repeated rapid COVID 06/01 positive started on steroids MDI check inflam markers to acces risk for cytokine storm-> ferritin 448, CRP 2.3m LDH 206, but D dimer 16.5 DVT prophayxlis with Lovenox piulse ox stable on RA fup with CXR, initial stable consider CT chest -> for prominent right paratracheal stripe seen on CXR r/o adenopathy. not emergent, can be done as OP when COVID free asp precautions, GT feeding nephro follows for hypo Na management, s/p hypertonic solution, Na stabilized GI prophylaxis abx for UTI UCX NGT , off abx get TV US, given hematuria , possible vaginal bleeding monitor HH, abd US as ordered by attending trend lipase BS management with sensitive SSI TSH elevated; started on levothyroxine per attending , repeat TFT in 4 wks supportive care thank you for a consult! case discussed and evaluated by supervising physician! Sherri Henry NP Jun 02, 2020 09:06
--- NOTE | 2020-06-02 09:25 | General Progress Note ---
Assessment/Plan Assessment/Plan: S: poor historian O: seems agitated, PHYSICAL EXAMINATION: AT/NC , HEAD AND NECK: Atraumatic and normocephalic. CHEST: Clear to auscultation.HEART: S1, S2. Regular rate and rhythm. ABDOMEN: SoftMUSCULOSKELETAL: Atrophied musculature. Lateralized motor deficit.NEUROLOGIC: The patient is malnourished. The patient appears delirious. LABORATORY DATA: Dated 06/01/2020, reviewed ASSESSMENT: 1. COVID-19 related deconditioning and general weakness. 2. Metabolic encephalopathy. 3. Acute /chronic anemia 4. Hyponatremia. 4. Hyperkalemia. 5. Abnormal lipase. 6. Hypothyroidism. 7. Cachexia and malnourishment. 8. Macrocytic anemia. Plan: Hold lovenox SCD in place FU with ID Subjective Allergies: Coded Allergies: No Known Allergies (Unverified , 05/31/20) Objective Last 24 Hour Vital Signs Date Time Temp Pulse Resp B/P (MAP) Pulse Ox O2 Delivery O2 Flow Rate FiO2 06/02/20 09:00 Room Air 06/02/20 08:00 97.7 65 18 102/62 (75) 94 06/02/20 04:00 98.6 96 20 124/77 (93) 96 06/02/20 02:45 Room Air 06/02/20 00:00 98.9 96 20 115/69 (84) 96 06/01/20 21:00 Room Air 06/01/20 20:00 98.2 90 18 130/68 (88) 95 06/01/20 16:00 96.8 99 18 140/71 (94) 99 06/01/20 11:34 98.6 94 18 106/68 (81) 98 Intake and Output 06/01/20 06/02/20 19:00 07:00 Intake Total 465 ml 725 ml Output Total 400 ml Balance 65 ml 725 ml Intake Free Water 70 ml 60 ml IV Total 240 ml 260 ml Tube Feeding 155 ml 405 ml Output Urine Total 400 ml Laboratory Tests 06/01/20 10:45: Urine Osmolality 544H, Urine Random Sodium 44 06/01/20 11:05: POC Whole Blood Glucose 108H 06/02/20 04:00: White Blood Count 6.4, Red Blood Count 2.68L, Hemoglobin 9.1L, Hematocrit 28.3L , Mean Corpuscular Volume 106H, Mean Corpuscular Hemoglobin 34.1H, Mean Corpuscular Hemoglobin Concent 32.3, Red Cell Distribution Width 13.7, Platelet Count 258, Mean Platelet Volume 6.5, Neutrophils (%) (Auto) 65.3, Lymphocytes (% ) (Auto) 21.1, Monocytes (%) (Auto) 12.8H, Eosinophils (%) (Auto) 0.1, Basophils (%) (Auto) 0.8, D-Dimer 16.52H, Sodium Level 137#, Potassium Level 3.9 , Chloride Level 104, Carbon Dioxide Level 24, Anion Gap 9, Blood Urea Nitrogen 42H, Creatinine 1.0, Estimat Glomerular Filtration Rate 52.5, Glucose Level 125H , Osmolality 299, Uric Acid 6.2, Calcium Level 9.0, Phosphorus Level 4.0, Magnesium Level 2.4, Ferritin 448H, Total Bilirubin 0.5, Aspartate Amino Transf (AST/SGOT) 48H, Alanine Aminotransferase (ALT/SGPT) 66, Alkaline Phosphatase 122H, Lactate Dehydrogenase 206, C-Reactive Protein, Quantitative 2.3H, Total Protein 7.1, Albumin 3.2L, Globulin 3.9, Albumin/Globulin Ratio 0.8L, Lipase 362 06/02/20 05:50: POC Whole Blood Glucose 116H Height (Feet): 5 Height (Inches): 7.00 Weight (Pounds): 140 Tiffanie Ott MD Jun 02, 2020 09:25
--- NOTE | 2020-06-02 10:35 | NUR ---
NURSE NOTES: PT WAS CALM AND ASLEEP AFTER ADMINISTRATION OF PRN SEROQUEL. PT IS NOW AWAKE, CALM, FIDGETING WITH BLANKETS. BILATERAL SOFT WRIST RESTRAINTS ARE ON PT. SKIN OF WRISTS ARE INTACT, PERIPHERAL RADIAL PULSES PALPABLE, AND NO SWELLING NOTED. PT PLACED IN SEMI-RASCON'S POSITION WITH HOB ELEVATED. TIPTON CATH DRAINING RED/BROWN URINE BY GRAVITY. IN NO APPARENT DISTRESS AT THIS TIME. BED IN LOWEST POSITION WITH BEDSIDE RAILS X3 RAISED. GTUBE RUNNING GLUCERNA 1.2 AT GOAL RATE 40ML/HR. MINIMAL RESIDUAL NOTED. IN NO APPARENT DISTRESS AT THIS TIME. WILL CONTINUE TO MONITOR.
--- NOTE | 2020-06-02 10:46 | NUR ---
RD ASSESSMENT & RECOMMENDATIONS SEE CARE ACTIVITY FOR COMPLETE ASSESSMENT DAILY ESTIMATED NEEDS: Needs based on wound, pulmonary 54.6kg 25-35 kcals/kg 6172-8533 total kcals 1.25-1.5 g protein/kg 68-82 g total protein 25--30ml/kcal mL/kg 5653-3268 total fluid mLs NUTRITION DIAGNOSIS: Swallowing difficulty r/t dysphagia as evidenced by pt is PEG dep. CURRENT TF: Glucerna 1.2 @40ml/hr x22 hrs ENTERAL NUTRITION RECOMMENDATIONS: TF change to Glucerna 1.5 w/ goal of 45ml/hr x22 hrs to provide 990ml, 1485kcal, 82g pro, 751ml free H2O - OOS on Glucerna 1.2, rec Glucerna 1.5 as substitute. - Initiate at low rate, 25ml/hr for 6 hrs - Advance as tolerated 10ml/hr q4-6 hrs to goal - Hold for 1 hr before and after sythroid meds - Flush per . HOB over 30 degrees ADDITIONAL RECOMMENDATIONS: 1) TF recs as above 2) Per SNF: 5'3" and 120.2lbs (54.64kg) 3) Monitor lytes w/ TF and daily wts 4) Wound care: add Juan C in 4oz water BID via GT
--- NOTE | 2020-06-02 11:17 | Nephrology Progress Note ---
Assessment/Plan Problem List: (1) Hyponatremia syndrome (2) Hematuria (3) Pneumonia due to COVID-19 virus (4) UTI (urinary tract infection) (5) Generalized weakness Assessment 1. COVID-19 related deconditioning and general weakness. 2. Metabolic encephalopathy. 3. Hyponatremia. 4. Hyperkalemia. 5. Elevated lipase. Level of 676. 6. Hypothyroidism. Elevated TSH level. 7. Cachexia and malnourishment. 8. Macrocytic anemia. Plan Electrolyte abnormalities corrected 3% saline 250 cc once given yesterday Anemia work-up noted Monitor electrolytes Per orders Subjective ROS Limited/Unobtainable: No Constitutional: Reports: malaise, weakness Objective Objective Last 24 Hour Vital Signs Date Time Temp Pulse Resp B/P (MAP) Pulse Ox O2 Delivery O2 Flow Rate FiO2 06/02/20 09:00 Room Air 06/02/20 08:00 97.7 65 18 102/62 (75) 94 06/02/20 04:00 98.6 96 20 124/77 (93) 96 06/02/20 02:45 Room Air 06/02/20 00:00 98.9 96 20 115/69 (84) 96 06/01/20 21:00 Room Air 06/01/20 20:00 98.2 90 18 130/68 (88) 95 06/01/20 16:00 96.8 99 18 140/71 (94) 99 06/01/20 11:34 98.6 94 18 106/68 (81) 98 Intake and Output 06/01/20 06/02/20 19:00 07:00 Intake Total 465 ml 745 ml Output Total 400 ml Balance 65 ml 745 ml Intake Free Water 70 ml 60 ml IV Total 240 ml 260 ml Tube Feeding 155 ml 425 ml Output Urine Total 400 ml Current Medications Medications (Trade) Dose Ordered Sig/Boo Route PRN Reason Start Time Stop Time Status Last Admin Dose Admin Acetaminophen (Tylenol) 500 mg Q6HR PRN ORAL Mild Pain (Pain Scale 1-3) 05/31/20 23:45 06/30/20 23:44 Acetaminophen (Tylenol) 650 mg Q6H PRN ORAL Temp >100.5 05/31/20 23:45 06/30/20 23:44 Albuterol Sulfate (Proventil MDI) 2 puff Q4H PRN INH Shortness of Breath 06/01/20 09:15 08/30/20 09:14 Azithromycin 500 mg/Dextrose 275 ml @ 275 mls/hr Q24HRS IV 06/02/20 11:15 06/08/20 12:14 Ceftriaxone Sodium 1 gm/ Dextrose 55 ml @ 110 mls/hr Q24H IVPB 06/02/20 11:15 06/09/20 11:14 Dexamethasone (Decadron) 6 mg DAILY ORAL 06/01/20 10:00 06/05/20 12:00 06/02/20 08:58 Dextrose (Dextrose 50%) 25 ml Q30M PRN IV Hypoglycemia 06/01/20 00:15 08/30/20 00:14 Dextrose (Dextrose 50%) 50 ml Q30M PRN IV Hypoglycemia 06/01/20 00:15 08/30/20 00:14 Docusate Sodium (Colace) 100 mg THREE TIMES A DAY GT 06/01/20 18:00 07/01/20 17:59 06/02/20 08:57 Insulin Aspart (NovoLOG) BEFORE MEALS AND HS SUBQ 06/01/20 06:30 08/30/20 06:29 Iohexol (OMNIPAQUE-300 100ml) 100 ml NOW PRN INJ Radiology Procedure 05/31/20 19:00 06/02/20 19:00 Levothyroxine Sodium (Synthroid) 50 mcg DAILY@0630 ORAL 06/02/20 06:30 07/02/20 06:29 06/02/20 06:28 Morphine Sulfate (Morphine Sulfate) 2 mg Q6HR PRN IVP Severe Pain (Pain Scale 7-10) 05/31/20 23:45 06/07/20 23:44 06/02/20 07:30 Ondansetron HCl (Zofran) 4 mg Q6H PRN IVP Nausea & Vomiting 05/31/20 23:45 06/30/20 23:44 Pantoprazole (Protonix) 40 mg BID ORAL 06/01/20 18:00 07/01/20 08:59 06/02/20 08:58 Quetiapine Fumarate (SEROqueL) 25 mg Q8H PRN ORAL Restlessness 06/02/20 07:30 07/17/20 07:29 06/02/20 07:30 Risperidone (RisperDAL) 0.5 mg DAILY ORAL 06/02/20 09:00 07/17/20 08:59 06/02/20 08:58 Laboratory Tests 06/02/20 04:00: White Blood Count 6.4, Red Blood Count 2.68L, Hemoglobin 9.1L, Hematocrit 28.3L , Mean Corpuscular Volume 106H, Mean Corpuscular Hemoglobin 34.1H, Mean Corpuscular Hemoglobin Concent 32.3, Red Cell Distribution Width 13.7, Platelet Count 258, Mean Platelet Volume 6.5, Neutrophils (%) (Auto) 65.3, Lymphocytes (% ) (Auto) 21.1, Monocytes (%) (Auto) 12.8H, Eosinophils (%) (Auto) 0.1, Basophils (%) (Auto) 0.8, D-Dimer 16.52H, Sodium Level 137#, Potassium Level 3.9 , Chloride Level 104, Carbon Dioxide Level 24, Anion Gap 9, Blood Urea Nitrogen 42H, Creatinine 1.0, Estimat Glomerular Filtration Rate 52.5, Glucose Level 125H , Osmolality 299, Uric Acid 6.2, Calcium Level 9.0, Phosphorus Level 4.0, Magnesium Level 2.4, Ferritin 448H, Total Bilirubin 0.5, Aspartate Amino Transf (AST/SGOT) 48H, Alanine Aminotransferase (ALT/SGPT) 66, Alkaline Phosphatase 122H, Lactate Dehydrogenase 206, C-Reactive Protein, Quantitative 2.3H, Total Protein 7.1, Albumin 3.2L, Globulin 3.9, Albumin/Globulin Ratio 0.8L, Lipase 362 06/02/20 05:50: POC Whole Blood Glucose 116H Height (Feet): 5 Height (Inches): 7.00 Weight (Pounds): 140 General Appearance: no apparent distress Cardiovascular: normal rate Respiratory/Chest: decreased breath sounds Abdomen: distended Genitourinary/Rectal: other - Abraham catheter in place Mendoza Ponce MD Jun 02, 2020 11:17
[2020-06-02] MEDS: cefTRIAXone 1 GM in D5W 55 ML IVPB SCH (11:49)
[2020-06-02] MEDS: Azithromycin 500 MG in D5W 275 ML IV SCH (11:50)
[2020-06-02 12:00] VITALS: BP 125/57
--- NOTE | 2020-06-02 14:00 | NUR ---
NURSE NOTES: PT PLACED ON SCDs. LOVENOX DISCONTINUED PER DR WICK.
[2020-06-02 16:00] VITALS: BP 121/64
--- NOTE | 2020-06-02 17:26 | NUR ---
CASE MANAGEMENT:REVIEW 85 YR OLD FEMALE BIB[facility] CC: VAGINAL BLEEDING PMH: COVID POSITIVE SI: COVID PNA. HEMATURIA. HYPONATREMIA PANCREATITIS 98.6 100 18 129/69 98% ON RA NA-123 K+5.3 BUN+56 LIPASE+676 IS: 1L NS BOLUS 500CC NS BOLUS URINE CX CT ABD/PELVIS US TRANSVAGINAL TYPE & SCREEN COVID SWAB : TO MED/SURG
--- NOTE | 2020-06-02 18:00 | NUR ---
NURSE NOTES: TIPTON CATH DRAINING YELLOW URINE, BUT URINE BAG IS BROWN/RED. NO CLOTS OR SEDIMENTS NOTED. PT CONTINUES TO BE RESTLESS THROUGHOUT THE DAY, ATTEMPTING TO PULL ON TIPTON CATH OR GTUBE. GTUBE PUMP MALFUNCTION AND CENTRAL SUPPLY IS CLOSED. NO EXTRA TUBE PUMPS AVAILABLE. DR WICK WAS MADE AWARE AND RN RECEIVED ORDER TO START GTUBE BOLUS FEEDINML Q6H UNTIL GTUBE PUMP BECOMES AVAILABLE. PT IN NO APPARENT DISTRESS. PT FIDGETS WITH BLANKETS. BED IN LOWEST POSITION WITH BEDSIDE RAILS X3 RAISED. BED ALARM ON. WILL CONTINUE TO MONITOR.
--- NOTE | 2020-06-02 19:29 | NUR ---
HAND-OFF: Report given to Tammi JACKSON RN.
--- NOTE | 2020-06-02 19:35 | NUR ---
NURSE NOTES: Received patient in bed, patient is Qatari speaking only, oriented x1, able to converse but in Qatari, patient is confused,also disoriented, bilateral wrist restraints are applied, patient been noted with pulling on IV and Abraham catheter. Tube feeding is in place, bolus per MD 250 ml q 6 hours. IV site is clean dry and intact. Call light is within reach, bed is lowered, locked, alarm is on, will continue to monitor for comfort and safety.
[2020-06-02 20:00] VITALS: BP 124/75
[2020-06-03] VITALS: BP 131/72
--- NOTE | 2020-06-03 00:02 | Initial Psychiatric Evaluation ---
Psychiatry Consultation Psychiatry Consultation Chief Complaint: Generalized Weakness Allergies: Coded Allergies: No Known Allergies (Unverified , 05/31/20) Medication History Scheduled Ferrous Sulfate* (Ferrous Sulfate*), 325 MG ORAL DAILY, (Reported) Simvastatin (Zocor), 10 MG ORAL BEDTIME, (Reported) Objective Data Height (Feet): 5 Height (Inches): 7.00 Weight (Pounds): 140 Jeff Noriega MD Jun 03, 2020 00:02
[2020-06-03 04:00] VITALS: BP 118/67
[2020-06-03] MEDS: NovoLOG Insulin Flexpen SUBQ SCH ×4 (05:36→18:00)
--- NOTE | 2020-06-03 07:25 | NUR ---
HAND-OFF: Report given to Luis Moore RN.
--- NOTE | 2020-06-03 07:50 | NUR ---
NURSE NOTES: Report received from NOBLE Moore. Patient in bed, A and O x 2, no SOB, bed in lowest position with alarm on and breaks engaged, on room air, on droplet and contact isolation for COVID 19, FC in place, denies any pain or discomfort at this time, will continue to monitor and proceed with plan of care, call light within reach.
[2020-06-03 08:00] VITALS: BP 125/62
[2020-06-03] MEDS: Docusate 100mg/10ml Liq GT SCH ×3 (08:59→17:31)
--- NOTE | 2020-06-03 11:00 | Pulmonology Progress Note ---
Sherri Henry CHIEF OPERATOR REFORMER 06/03/20 1100: Subjective ROS Limited/Unobtainable: No Allergies: Coded Allergies: No Known Allergies (Unverified , 05/31/20) Subjective in COVID isolation, remains afebrile , no leukocytosis pulse ox stable on RA was anxious earlier this am and pulled out Abraham Objective Last 24 Hour Vital Signs Date Time Temp Pulse Resp B/P (MAP) Pulse Ox O2 Delivery O2 Flow Rate FiO2 06/03/20 09:00 Room Air 06/03/20 08:00 98.0 98 18 125/62 (83) 95 06/03/20 04:00 98.2 94 18 118/67 (84) 98 06/03/20 00:00 98.3 96 18 131/72 (91) 95 06/02/20 21:10 Room Air 06/02/20 20:00 97.8 93 18 124/75 (91) 98 06/02/20 16:00 97.9 101 18 121/64 (83) 96 06/02/20 12:00 97.3 90 18 125/57 (79) 93 Intake and Output 06/02/20 06/03/20 19:00 07:00 Intake Total 1055 ml 270 ml Output Total 400 ml Balance 1055 ml -130 ml Intake Free Water 90 ml 20 ml IV Total 330 ml Tube Feeding 635 ml 250 ml Output Urine Total 400 ml Objective General Appearance: no apparent distress, demented thin Macedonian speaking bedridden female in NAD Lines, tubes and drains: peripheral HEENT: normocephalic, atraumatic, anicteric, PERRL Neck: supple Respiratory/Chest: lungs clear with moderate air exchange , no accessory muscle use Cardiovascular/Chest: normal rate Abdomen: non tender, soft, feeding tube /G tube , site clean, covered with dressing Extremities: no calf tenderness, no edema Neurologic: abnormal gait, alert, responsive but very confused andanxious Musculoskeletal: atrophy BLE Microbiology Date/Time Source Procedure Growth Status 05/31/20 19:10 Nasopharynx SARS-CoV-2 RdRp Gene Assay - Final Complete 05/31/20 18:35 Nasal Nares MRSA Culture - Final NO METHICILLIN RESISTANT STAPH AUREUS... Complete 05/31/20 18:15 Urine,Clean Catch Urine Culture - Preliminary Resulted 05/31/20 18:35 Rectum Received Current Medications Medications (Trade) Dose Ordered Sig/Boo Route PRN Reason Start Time Stop Time Status Last Admin Dose Admin Acetaminophen (Tylenol) 500 mg Q6HR PRN ORAL Mild Pain (Pain Scale 1-3) 05/31/20 23:45 06/30/20 23:44 Acetaminophen (Tylenol) 650 mg Q6H PRN ORAL Temp >100.5 05/31/20 23:45 06/30/20 23:44 Albuterol Sulfate (Proventil MDI) 2 puff Q4H PRN INH Shortness of Breath 06/01/20 09:15 08/30/20 09:14 Azithromycin 500 mg/Dextrose 275 ml @ 275 mls/hr Q24HRS IV 06/02/20 11:15 06/08/20 12:14 06/02/20 11:50 Ceftriaxone Sodium 1 gm/ Dextrose 55 ml @ 110 mls/hr Q24H IVPB 06/02/20 11:15 06/09/20 11:14 06/02/20 11:49 Dexamethasone (Decadron) 6 mg DAILY ORAL 06/01/20 10:00 06/05/20 12:00 06/03/20 08:59 Dextrose (Dextrose 50%) 25 ml Q30M PRN IV Hypoglycemia 06/01/20 00:15 08/30/20 00:14 Dextrose (Dextrose 50%) 50 ml Q30M PRN IV Hypoglycemia 06/01/20 00:15 08/30/20 00:14 Docusate Sodium (Colace) 100 mg THREE TIMES A DAY GT 06/01/20 18:00 07/01/20 17:59 06/03/20 08:59 Insulin Aspart (NovoLOG) Q6HR SUBQ 06/02/20 12:00 08/31/20 11:59 06/02/20 17:39 Levothyroxine Sodium (Synthroid) 50 mcg DAILY@0630 ORAL 06/02/20 06:30 07/02/20 06:29 06/02/20 06:28 Morphine Sulfate (Morphine Sulfate) 2 mg Q6HR PRN IVP Severe Pain (Pain Scale 7-10) 05/31/20 23:45 06/07/20 23:44 06/02/20 15:10 Ondansetron HCl (Zofran) 4 mg Q6H PRN IVP Nausea & Vomiting 05/31/20 23:45 06/30/20 23:44 Pantoprazole (Protonix) 40 mg BID ORAL 06/01/20 18:00 07/01/20 08:59 06/03/20 08:59 Quetiapine Fumarate (SEROqueL) 25 mg Q8H PRN ORAL Restlessness 06/02/20 07:30 07/17/20 07:29 06/02/20 17:25 Risperidone (RisperDAL) 0.5 mg DAILY ORAL 06/02/20 09:00 07/17/20 08:59 06/03/20 08:59 Assessment/Plan Assessment/Plan ASSESSMENT COVID infection Hematuria vs vaginal bleeding Hyponatremia CHRIS, probably due to dehydration Dysphagia, feeding by G tube DM Dementia Elevated TSH , probably hypothyroidism Elevated lipase PLAN OF CARE MS floor isolation for COVID repeated rapid COVID 06/01 positive started on steroids MDI check inflam markers to acces risk for cytokine storm-> ferritin 448, CRP 2.3m LDH 206, but D dimer 16.5 DVT prophayxlis with Lovenox pulse ox stable on RA fup with CXR in am , initial stable consider CT chest -> for prominent right paratracheal stripe seen on CXR r/o adenopathy. not emergent, can be done as OP when COVID free asp precautions, GT feeding nephro follows for hypo Na management, s/p hypertonic solution, Na stabilized GI prophylaxis abx per ID recs-Ceftriaxone and Azithromycin UCX NGT , get TV US, given hematuria , possible vaginal bleeding monitor HH, abd US as ordered by attending trend lipase BS management with sensitive SSI TSH elevated; started on levothyroxine per attending , repeat TFT in 4 wks supportive care ask psych for management of anxiety behavior thank you for a consult! case discussed and evaluated by supervising physician! Jesus Alberto Paris MD 06/03/202123: Subjective Allergies: Coded Allergies: No Known Allergies (Unverified , 05/31/20) Assessment/Plan Assessment/Plan Patient seen and examined with CHIEF OPERATOR REFORMER. Agree with above A&P as it reflects our joint deliberations. Sherri Henry CHIEF OPERATOR REFORMER Jun 03, 2020 11:00 Jesus Alberto Paris MD Jun 03, 2020 21:24
[2020-06-03] MEDS: cefTRIAXone 1 GM in D5W 55 ML IVPB SCH (11:01)
--- NOTE | 2020-06-03 11:05 | NUR ---
NURSE NOTES: Yuko from [facility] called and stated patient is VRE positive.
--- NOTE | 2020-06-03 11:39 | General Progress Note ---
Assessment/Plan Assessment/Plan: S: poor historian O: seems agitated, PHYSICAL EXAMINATION: AT/NC , HEAD AND NECK: Atraumatic and normocephalic. CHEST: Clear to auscultation.HEART: S1, S2. Regular rate and rhythm. ABDOMEN: SoftMUSCULOSKELETAL: Atrophied musculature. Lateralized motor deficit.NEUROLOGIC: The patient is malnourished. The patient appears delirious. LABORATORY DATA: Dated 06/02/2020, reviewed ASSESSMENT: 1. COVID-19 related deconditioning and general weakness. 2. Metabolic encephalopathy. 3. Acute /chronic anemia 4. Hyponatremia. 4. Hyperkalemia. 5. Abnormal lipase. 6. Hypothyroidism. 7. Cachexia and malnourishment. 8. Macrocytic anemia. Plan: Hold lovenox SCD in place FU with ID Re check cbc repeat labs for today Subjective Allergies: Coded Allergies: No Known Allergies (Unverified , 05/31/20) Objective Last 24 Hour Vital Signs Date Time Temp Pulse Resp B/P (MAP) Pulse Ox O2 Delivery O2 Flow Rate FiO2 06/03/20 09:00 Room Air 06/03/20 08:00 98.0 98 18 125/62 (83) 95 06/03/20 04:00 98.2 94 18 118/67 (84) 98 06/03/20 00:00 98.3 96 18 131/72 (91) 95 06/02/20 21:10 Room Air 06/02/20 20:00 97.8 93 18 124/75 (91) 98 06/02/20 16:00 97.9 101 18 121/64 (83) 96 06/02/20 12:00 97.3 90 18 125/57 (79) 93 Intake and Output 06/02/20 06/03/20 19:00 07:00 Intake Total 1055 ml 270 ml Output Total 400 ml Balance 1055 ml -130 ml Intake Free Water 90 ml 20 ml IV Total 330 ml Tube Feeding 635 ml 250 ml Output Urine Total 400 ml Height (Feet): 5 Height (Inches): 7.00 Weight (Pounds): 140 Tiffanie Ott MD Jun 03, 2020 11:39
[2020-06-03 12:00] VITALS: BP 110/67
[2020-06-03] MEDS: Azithromycin 500 MG in D5W 275 ML IV SCH (12:12)
--- NOTE | 2020-06-03 12:59 | Nephrology Progress Note ---
Assessment/Plan Problem List: (1) Hyponatremia syndrome (2) Hematuria (3) Pneumonia due to COVID-19 virus (4) UTI (urinary tract infection) (5) Generalized weakness Assessment 1. COVID-19 related deconditioning and general weakness. 2. Metabolic encephalopathy. 3. Hyponatremia. 4. Hyperkalemia. 5. Elevated lipase. Level of 676. 6. Hypothyroidism. Elevated TSH level. 7. Cachexia and malnourishment. 8. Macrocytic anemia. Plan Electrolyte abnormalities corrected Recheck lab tomorrow Anemia work-up noted Monitor electrolytes Per orders Subjective ROS Limited/Unobtainable: No Constitutional: Reports: malaise, weakness Objective Objective Last 24 Hour Vital Signs Date Time Temp Pulse Resp B/P (MAP) Pulse Ox O2 Delivery O2 Flow Rate FiO2 06/03/20 12:00 98.2 85 18 110/67 (81) 96 06/03/20 09:00 Room Air 06/03/20 08:00 98.0 98 18 125/62 (83) 95 06/03/20 04:00 98.2 94 18 118/67 (84) 98 06/03/20 00:00 98.3 96 18 131/72 (91) 95 06/02/20 21:10 Room Air 06/02/20 20:00 97.8 93 18 124/75 (91) 98 06/02/20 16:00 97.9 101 18 121/64 (83) 96 Intake and Output 06/02/20 06/03/20 19:00 07:00 Intake Total 1055 ml 270 ml Output Total 400 ml Balance 1055 ml -130 ml Intake Free Water 90 ml 20 ml IV Total 330 ml Tube Feeding 635 ml 250 ml Output Urine Total 400 ml Current Medications Medications (Trade) Dose Ordered Sig/Boo Route PRN Reason Start Time Stop Time Status Last Admin Dose Admin Acetaminophen (Tylenol) 500 mg Q6HR PRN ORAL Mild Pain (Pain Scale 1-3) 05/31/20 23:45 06/30/20 23:44 Acetaminophen (Tylenol) 650 mg Q6H PRN ORAL Temp >100.5 05/31/20 23:45 06/30/20 23:44 Albuterol Sulfate (Proventil MDI) 2 puff Q4H PRN INH Shortness of Breath 06/01/20 09:15 08/30/20 09:14 Azithromycin 500 mg/Dextrose 275 ml @ 275 mls/hr Q24HRS IV 06/02/20 11:15 06/08/20 12:14 06/03/20 12:12 Ceftriaxone Sodium 1 gm/ Dextrose 55 ml @ 110 mls/hr Q24H IVPB 06/02/20 11:15 06/09/20 11:14 06/03/20 11:01 Dexamethasone (Decadron) 6 mg DAILY ORAL 06/01/20 10:00 06/05/20 12:00 06/03/20 08:59 Dextrose (Dextrose 50%) 25 ml Q30M PRN IV Hypoglycemia 06/01/20 00:15 08/30/20 00:14 Dextrose (Dextrose 50%) 50 ml Q30M PRN IV Hypoglycemia 06/01/20 00:15 08/30/20 00:14 Docusate Sodium (Colace) 100 mg THREE TIMES A DAY GT 06/01/20 18:00 07/01/20 17:59 06/03/20 12:13 Insulin Aspart (NovoLOG) Q6HR SUBQ 06/02/20 12:00 08/31/20 11:59 06/02/20 17:39 Levothyroxine Sodium (Synthroid) 50 mcg DAILY@0630 ORAL 06/02/20 06:30 07/02/20 06:29 06/02/20 06:28 Morphine Sulfate (Morphine Sulfate) 2 mg Q6HR PRN IVP Severe Pain (Pain Scale 7-10) 05/31/20 23:45 06/07/20 23:44 06/02/20 15:10 Ondansetron HCl (Zofran) 4 mg Q6H PRN IVP Nausea & Vomiting 05/31/20 23:45 06/30/20 23:44 Pantoprazole (Protonix) 40 mg BID ORAL 06/01/20 18:00 07/01/20 08:59 06/03/20 08:59 Quetiapine Fumarate (SEROqueL) 25 mg Q8H PRN ORAL Restlessness 06/02/20 07:30 07/17/20 07:29 06/02/20 17:25 Risperidone (RisperDAL) 0.5 mg DAILY ORAL 06/02/20 09:00 07/17/20 08:59 7/27/20 08:59 No labs done today Height (Feet): 5 Height (Inches): 7.00 Weight (Pounds): 140 General Appearance: no apparent distress Cardiovascular: tachycardia Respiratory/Chest: decreased breath sounds Abdomen: distended Mendoza Ponce MD Jun 03, 2020 12:59
--- NOTE | 2020-06-03 14:18 | Consultation ---
History of Present Illness General Date patient seen: Jun 03, 2020 Chief Complaint: Generalized Weakness Referring physician: Dr Ott Reason for Consultation: COVID infection Present Illness HPI 85 y/o F with hx of Dementia, Dm2, HLD, MDD, sacral decubitus ulcer, dysphagia s /p GT, recent COVID19 (test positive on 05/12/20), SNF resident presented to ED on 05/31/20 with generalized weakness, gross hematuria. Upon admission was found to have hyponatremia and mild hyperkalemia as well as elevated cr and BUN Allergies: Coded Allergies: No Known Allergies (Unverified , 05/31/20) Medication History Scheduled Ferrous Sulfate* (Ferrous Sulfate*), 325 MG ORAL DAILY, (Reported) Simvastatin (Zocor), 10 MG ORAL BEDTIME, (Reported) Patient History Healthcare decision maker N Resuscitation status Advanced Directive on File Patient History Narrative Pmhx: as above Shx: reviewed Fhx: non contributory Review of Systems All Other Systems: negative except mentioned in HPI Physical Exam Physical Exam Narrative General Appearance: no apparent distress, other - thin Malay speaking bedridden female in NAD Lines, tubes and drains: peripheral HEENT: normocephalic, atraumatic, anicteric, PERRL Neck: supple Respiratory/Chest: lungs clear - with moderate ait exchange , no accessory muscle use Cardiovascular/Chest: normal rate Abdomen: non tender, soft, feeding tube - G tube , site clean, covered with dressing Extremities: no calf tenderness, no edema Neurologic: abnormal gait, alert, responsive - confused Musculoskeletal: atrophy - BLE Last 24 Hour Vital Signs Date Time Temp Pulse Resp B/P (MAP) Pulse Ox O2 Delivery O2 Flow Rate FiO2 06/03/20 12:00 98.2 85 18 110/67 (81) 96 06/03/20 09:00 Room Air 06/03/20 08:00 98.0 98 18 125/62 (83) 95 06/03/20 04:00 98.2 94 18 118/67 (84) 98 06/03/20 00:00 98.3 96 18 131/72 (91) 95 06/02/20 21:10 Room Air 06/02/20 20:00 97.8 93 18 124/75 (91) 98 06/02/20 16:00 97.9 101 18 121/64 (83) 96 Intake and Output 06/02/20 06/03/20 19:00 07:00 Intake Total 1055 ml 270 ml Output Total 400 ml Balance 1055 ml -130 ml Intake Free Water 90 ml 20 ml IV Total 330 ml Tube Feeding 635 ml 250 ml Output Urine Total 400 ml Height (Feet): 5 Height (Inches): 7.00 Weight (Pounds): 140 Medications Current Medications Medications (Trade) Dose Ordered Sig/Boo Route PRN Reason Start Time Stop Time Status Last Admin Dose Admin Acetaminophen (Tylenol) 500 mg Q6HR PRN ORAL Mild Pain (Pain Scale 1-3) 05/31/20 23:45 06/30/20 23:44 Acetaminophen (Tylenol) 650 mg Q6H PRN ORAL Temp >100.5 05/31/20 23:45 06/30/20 23:44 Albuterol Sulfate (Proventil MDI) 2 puff Q4H PRN INH Shortness of Breath 06/01/20 09:15 08/30/20 09:14 Azithromycin 500 mg/Dextrose 275 ml @ 275 mls/hr Q24HRS IV 06/02/20 11:15 06/08/20 12:14 06/03/20 12:12 Ceftriaxone Sodium 1 gm/ Dextrose 55 ml @ 110 mls/hr Q24H IVPB 06/02/20 11:15 06/09/20 11:14 06/03/20 11:01 Dexamethasone (Decadron) 6 mg DAILY ORAL 06/01/20 10:00 06/05/20 12:00 06/03/20 08:59 Dextrose (Dextrose 50%) 25 ml Q30M PRN IV Hypoglycemia 06/01/20 00:15 08/30/20 00:14 Dextrose (Dextrose 50%) 50 ml Q30M PRN IV Hypoglycemia 06/01/20 00:15 08/30/20 00:14 Docusate Sodium (Colace) 100 mg THREE TIMES A DAY GT 06/01/20 18:00 07/01/20 17:59 06/03/20 12:13 Insulin Aspart (NovoLOG) Q6HR SUBQ 06/02/20 12:00 08/31/20 11:59 06/02/20 17:39 Levothyroxine Sodium (Synthroid) 50 mcg DAILY@0630 ORAL 06/02/20 06:30 07/02/20 06:29 06/02/20 06:28 Morphine Sulfate (Morphine Sulfate) 2 mg Q6HR PRN IVP Severe Pain (Pain Scale 7-10) 05/31/20 23:45 06/07/20 23:44 06/02/20 15:10 Ondansetron HCl (Zofran) 4 mg Q6H PRN IVP Nausea & Vomiting 05/31/20 23:45 06/30/20 23:44 Pantoprazole (Protonix) 40 mg BID ORAL 06/01/20 18:00 07/01/20 08:59 06/03/20 08:59 Quetiapine Fumarate (SEROqueL) 25 mg Q8H PRN ORAL Restlessness 06/02/20 07:30 07/17/20 07:29 06/02/20 17:25 Risperidone (RisperDAL) 0.5 mg DAILY ORAL 06/02/20 09:00 07/17/20 08:59 06/03/20 08:59 Assessment/Plan Assessment/Plan: Abx: Ceftrtiaxone 06/02- Azithromycin 06/02- Assessment: Recent COVID19 (dx'ed 05/12/20)- at RA - still PCR positive, no active PNA -05/31 Rapid COVID PCR + CXR: no acute cardiopulmonary disease UTI Gross hematuria -u/a RBC tnct, wbc 5-10, nit neg, leuk +2; ucx p Afebrile No leukocytosis Hyponatremia, SP Mild hyperkalemia, SP Dementia Dm2 HLD MDD sacral decubitus ulcer dysphagia s/p GT recent COVID19 (test positive on 05/12/20) SNF resident VRE colonized Plan: -Continue Ceftriaxone #2 pending ucx -Dc Azithromycin and Decadron #2- no active pNA, on RA -f/u cx -Monitor CBC/CMP, temperatures Thank you for this consultation. Will continue to follow along with you. Discussed with Caitlin Carcamo M.D. Jun 03, 2020 14:18
[2020-06-03 16:00] VITALS: BP 130/65
--- NOTE | 2020-06-03 16:31 | NUR ---
CASE MANAGEMENT:REVIEW 06/03/20 SI: COVID PNA. HEMATURIA. HYPONATREMIA PANCREATITIS 97.8 95 18 130/65 95% ON RA IS: IV ROCEPHIN Q24 IV AZITHROMYCIN Q24 RISPERDAL PO QD SEROQUEL Q8HRS PRN SYNTHROID PO QD PROTONIX PO BID : MED/SURG STATUS 4 EAST DCP: FROM [facility]
--- NOTE | 2020-06-03 19:44 | NUR ---
HAND-OFF: Report given to NOBLE Yepez.
--- NOTE | 2020-06-03 19:46 | NUR ---
NURSE NOTES: Patient in bed, A and O x 2, Pashto speaking. no SOB, bed in lowest position with alarm on and breaks engaged, on room air, on droplet and contact isolation. FC in place, pt is trying to pull at it, placed out of reach, however pt will still attempt despite being in restraints. Pt is very talkative and insists on eating chicken and is hungry. will continue to monitor and proceed with plan of care, call light within reach.
[2020-06-03 20:00] VITALS: BP 132/87
--- NOTE | 2020-06-03 23:46 | Psych Consult Progress Note ---
Psychiatry Progress Note Psychiatry Progress Note Medications Current Medications Medications (Trade) Dose Ordered Sig/Boo Route PRN Reason Start Time Stop Time Status Last Admin Dose Admin Acetaminophen (Tylenol) 500 mg Q6HR PRN ORAL Mild Pain (Pain Scale 1-3) 05/31/20 23:45 06/30/20 23:44 Acetaminophen (Tylenol) 650 mg Q6H PRN ORAL Temp >100.5 05/31/20 23:45 06/30/20 23:44 Albuterol Sulfate (Proventil MDI) 2 puff Q4H PRN INH Shortness of Breath 06/01/20 09:15 08/30/20 09:14 Ceftriaxone Sodium 1 gm/ Dextrose 55 ml @ 110 mls/hr Q24H IVPB 06/02/20 11:15 06/09/20 11:14 06/03/20 11:01 Dextrose (Dextrose 50%) 25 ml Q30M PRN IV Hypoglycemia 06/01/20 00:15 08/30/20 00:14 Dextrose (Dextrose 50%) 50 ml Q30M PRN IV Hypoglycemia 06/01/20 00:15 08/30/20 00:14 Docusate Sodium (Colace) 100 mg THREE TIMES A DAY GT 06/01/20 18:00 07/01/20 17:59 06/03/20 17:31 Insulin Aspart (NovoLOG) Q6HR SUBQ 06/02/20 12:00 08/31/20 11:59 06/02/20 17:39 Levothyroxine Sodium (Synthroid) 50 mcg DAILY@0630 ORAL 06/02/20 06:30 07/02/20 06:29 06/02/20 06:28 Morphine Sulfate (Morphine Sulfate) 2 mg Q6HR PRN IVP Severe Pain (Pain Scale 7-10) 05/31/20 23:45 06/07/20 23:44 06/02/20 15:10 Ondansetron HCl (Zofran) 4 mg Q6H PRN IVP Nausea & Vomiting 05/31/20 23:45 06/30/20 23:44 Pantoprazole (Protonix) 40 mg BID ORAL 06/01/20 18:00 07/01/20 08:59 06/03/20 17:31 Quetiapine Fumarate (SEROqueL) 25 mg Q8H PRN ORAL Restlessness 06/02/20 07:30 07/17/20 07:29 06/02/20 17:25 Risperidone (RisperDAL) 0.5 mg DAILY ORAL 06/02/20 09:00 07/17/20 08:59 06/03/20 08:59 Neurological/Psychiatric: Reports: anxiety, depressed, emotional problems Allergies: Coded Allergies: No Known Allergies (Unverified , 05/31/20) Objective Data Height (Feet): 5 Height (Inches): 7.00 Weight (Pounds): 140 General Appearance: alert, agitated, combative Mental Status Exam - Mood: agitated Additional Comments: alert and disoriented to situation and place. Mood is agitated. Affect is flat. Thought process, there is a paucity of thought content. Thought content, no suicidal or homicidal ideation. Cognition is impaired. Insight and judgment is impaired. Assessment/Plan Problem List: (1) Dementia with behavioral disturbance ICD Codes: F03.91 - Unspecified dementia with behavioral disturbance SNOMED: [id number] Assessment/Plan: jason conley and Jeff Wright MD Jun 03, 2020 23:46
[2020-06-04] VITALS: BP 123/85
[2020-06-04 04:00] VITALS: BP 132/87
[2020-06-04] MEDS: NovoLOG Insulin Flexpen SUBQ SCH ×5 (06:00→20:54)
[2020-06-04 06:56] LABS: BASOPHILS % (AUTO) 1.5 % (0.0-2.0); EOSINOPHILS % (AUTO) 1.1 % (0.0-3.0); HEMATOCRIT 29.1 % (37.0-47.0); HEMOGLOBIN 9.3 G/DL (12.0-16.0); LYMPHOCYTES % (AUTO) 18.3 % (20.0-45.0); MEAN CORPUSCULAR VOLUME 107 FL (80-99); MONOCYTES % (AUTO) 9.3 % (1.0-10.0); NEUTROPHILS % (AUTO) 69.8 % (45.0-75.0); PLATELET COUNT 223 K/UL (150-450); RED BLOOD COUNT 2.72 M/UL (4.20-5.40); RED CELL DISTRIBUTION WIDTH 14.3 % (11.6-14.8)
[2020-06-04 07:40] LABS: ALANINE AMINOTRANSFERASE 101 U/L (12-78); ALBUMIN/GLOBULIN RATIO 0.8 (1.0-2.7); ALKALINE PHOSPHATASE 112 U/L (46-116); ANION GAP 10 mmol/L (5-15); ASPARTATE AMINO TRANSFERASE 69 U/L (15-37); BILIRUBIN,TOTAL 0.5 MG/DL (0.2-1.0); BLOOD UREA NITROGEN 30 mg/dL (7-18); CALCIUM 8.9 MG/DL (8.5-10.1); CARBON DIOXIDE 26 MMOL/L (21-32); CHLORIDE 106 MMOL/L (98-107); POTASSIUM 3.5 MMOL/L (3.5-5.1); SODIUM 142 MMOL/L (136-145)
[2020-06-04 08:00] VITALS: BP 132/65
--- NOTE | 2020-06-04 08:15 | NUR ---
NURSE NOTES: Received report from cortney Luong RN. Patient is in stable condition.
[2020-06-04] MEDS: Docusate 100mg/10ml Liq GT SCH ×3 (09:17→17:37)
--- NOTE | 2020-06-04 09:46 | Pulmonology Progress Note ---
Sherri Henry HOSTED SERVICES ANALYST 06/04/20 0946: Subjective ROS Limited/Unobtainable: No Allergies: Coded Allergies: No Known Allergies (Unverified , 05/31/20) Subjective in COVID isolation, remains afebrile , no leukocytosis pulse ox stable on RA was anxious earlier this am Objective Last 24 Hour Vital Signs Date Time Temp Pulse Resp B/P (MAP) Pulse Ox O2 Delivery O2 Flow Rate FiO2 06/04/20 04:00 97.9 100 18 132/87 (102) 94 06/04/20 00:00 97.5 54 18 123/85 (98) 96 06/03/20 21:00 Room Air 06/03/20 20:00 97.9 100 18 132/87 (102) 96 06/03/20 16:00 97.8 95 18 130/65 (86) 95 06/03/20 12:00 98.2 85 18 110/67 (81) 96 Intake and Output 06/03/20 06/04/20 19:00 07:00 Intake Total 925 ml Output Total 400 ml 250 ml Balance 525 ml -250 ml Intake Free Water 20 ml IV Total 385 ml Tube Feeding 520 ml Output Urine Total 400 ml 250 ml Objective General Appearance: no apparent distress, demented thin Albanian speaking bedridden female in NAD Lines, tubes and drains: peripheral HEENT: normocephalic, atraumatic, anicteric, PERRL Neck: supple Respiratory/Chest: lungs clear with moderate air exchange , no accessory muscle use Cardiovascular/Chest: normal rate Abdomen: non tender, soft, feeding tube /G tube , site clean, covered with dressing Extremities: no calf tenderness, no edema Neurologic: abnormal gait, alert, responsive but very confused andanxious Musculoskeletal: atrophy BLE Laboratory Tests 06/04/20 06:23: White Blood Count 8.0, Red Blood Count 2.72L, Hemoglobin 9.3L, Hematocrit 29.1L , Mean Corpuscular Volume 107H, Mean Corpuscular Hemoglobin 34.2H, Mean Corpuscular Hemoglobin Concent 32.0, Red Cell Distribution Width 14.3, Platelet Count 223, Mean Platelet Volume 5.8L, Neutrophils (%) (Auto) 69.8, Lymphocytes ( %) (Auto) 18.3L, Monocytes (%) (Auto) 9.3, Eosinophils (%) (Auto) 1.1, Basophils (%) (Auto) 1.5, Sodium Level 142, Potassium Level 3.5, Chloride Level 106, Carbon Dioxide Level 26, Anion Gap 10, Blood Urea Nitrogen 30H, Creatinine 1.0, Estimat Glomerular Filtration Rate 52.5, Glucose Level 128H, Calcium Level 8.9, Total Bilirubin 0.5, Aspartate Amino Transf (AST/SGOT) 69H, Alanine Aminotransferase (ALT/SGPT) 101H, Alkaline Phosphatase 112, Total Protein 6.9, Albumin 3.0L, Globulin 3.9, Albumin/Globulin Ratio 0.8L Current Medications Medications (Trade) Dose Ordered Sig/Boo Route PRN Reason Start Time Stop Time Status Last Admin Dose Admin Acetaminophen (Tylenol) 500 mg Q6HR PRN ORAL Mild Pain (Pain Scale 1-3) 05/31/20 23:45 06/30/20 23:44 Acetaminophen (Tylenol) 650 mg Q6H PRN ORAL Temp >100.5 05/31/20 23:45 06/30/20 23:44 Albuterol Sulfate (Proventil MDI) 2 puff Q4H PRN INH Shortness of Breath 06/01/20 09:15 08/30/20 09:14 Ceftriaxone Sodium 1 gm/ Dextrose 55 ml @ 110 mls/hr Q24H IVPB 06/02/20 11:15 06/09/20 11:14 06/03/20 11:01 Dextrose (Dextrose 50%) 25 ml Q30M PRN IV Hypoglycemia 06/01/20 00:15 08/30/20 00:14 Dextrose (Dextrose 50%) 50 ml Q30M PRN IV Hypoglycemia 06/01/20 00:15 08/30/20 00:14 Divalproex Sodium (Depakote) 250 mg EVERY 12 HOURS ORAL 06/04/20 09:00 07/04/20 08:59 06/04/20 09:17 Docusate Sodium (Colace) 100 mg THREE TIMES A DAY GT 06/01/20 18:00 07/01/20 17:59 06/04/20 09:17 Insulin Aspart (NovoLOG) Q6HR SUBQ 06/02/20 12:00 08/31/20 11:59 06/02/20 17:39 Levothyroxine Sodium (Synthroid) 50 mcg DAILY@0630 ORAL 06/02/20 06:30 07/02/20 06:29 06/04/20 06:59 Morphine Sulfate (Morphine Sulfate) 2 mg Q6HR PRN IVP Severe Pain (Pain Scale 7-10) 05/31/20 23:45 06/07/20 23:44 06/02/20 15:10 Ondansetron HCl (Zofran) 4 mg Q6H PRN IVP Nausea & Vomiting 05/31/20 23:45 06/30/20 23:44 Pantoprazole (Protonix) 40 mg BID ORAL 06/01/20 18:00 07/01/20 08:59 06/04/20 09:17 Quetiapine Fumarate (SEROqueL) 25 mg Q8H PRN ORAL Restlessness 06/02/20 07:30 07/17/20 07:29 06/02/20 17:25 Assessment/Plan Assessment/Plan ASSESSMENT COVID infection Hematuria vs vaginal bleeding Hyponatremia CHRIS, probably due to dehydration Dysphagia, feeding by G tube DM Dementia Elevated TSH , probably hypothyroidism Elevated lipase PLAN OF CARE MS floor isolation for COVID repeated rapid COVID 06/01 positive on sterodis x 3 days, dc sterdis and Azithromycin since CXR clear MDI check inflam markers to acces risk for cytokine storm-> ferritin 448, CRP 2.3m LDH 206, but D dimer 16.5 DVT prophayxlis with Lovenox pulse ox stable on RA consider CT chest -> for prominent right paratracheal stripe seen on CXR r/o adenopathy. not emergent, can be done as OP when COVID free asp precautions, GT feeding nephro follows for hypo Na management, s/p hypertonic solution, Na stabilized GI prophylaxis abx per ID recs-Ceftriaxone and Azithromycin UCX +Diphtheroids, contaminant ? dc ceftriaxone -per ID , get pelvic US, given hematuria , possible vaginal bleeding monitor HH, abd US as ordered by attending trend lipase BS management with sensitive SSI TSH elevated; started on levothyroxine per attending , repeat TFT in 4 wks supportive care ask psych for management of anxiety behavior thank you for a consult! case discussed and evaluated by supervising physician! Jesus Alberto Paris MD 06/04/20 2210: Subjective Allergies: Coded Allergies: No Known Allergies (Unverified , 05/31/20) Assessment/Plan Assessment/Plan Patient seen and examined with HOSTED SERVICES ANALYST and I agree with the above assessment and plan. Sherri Henry NP Jun 04, 2020 09:46 Jesus Alberto Paris MD Jun 04, 2020 22:10
--- NOTE | 2020-06-04 10:00 | Consultation ---
DATE OF CONSULTATION: 06/04/2020 CONSULTING PHYSICIAN: Ayad Sun MD. REASON FOR CONSULTATION: Gross hematuria. HISTORY OF PRESENT ILLNESS: The patient is an 85-year-old lady, living in a detention with a PEG tube, brought to the hospital with altered mental status, noted to have gross hematuria. On the current exam, she does not have any hematuria. She has a Abraham catheter. PAST MEDICAL HISTORY: Significant for diabetes, history of dementia. MEDICATIONS: Reviewed. REVIEW OF SYMPTOMS: She is very restless in bed and not complaining of any pain. PHYSICAL EXAMINATION: VITAL SIGNS: She is afebrile. Vital signs stable. LUNGS: Clear to auscultation. CARDIOVASCULAR: Regular rate and rhythm. ABDOMEN: Soft, nontender. No suprapubic tenderness. Abraham catheter is in place. Clear urine. LABORATORY AND DIAGNOSTIC DATA: Reviewed, showing white count of 8.0, hematocrit is stable changed from 31 to 29 and 41, over the course of four days. Her chemistry shows creatinine of 1.0. There was no imaging done. ASSESSMENT AND PLAN: History of hematuria. I would recommend to do a renal ultrasound to rule out renal stones, but it is not an emergency since her creatinine and hematocrit is stable, could be done as an outpatient later considering her COVID status. I will follow this patient with you. Ayad Sun M.D. DR: TONY JOB#: [id number] CC:
--- NOTE | 2020-06-04 11:34 | General Progress Note ---
Assessment/Plan Assessment/Plan: S: poor historian O: seems agitated, PHYSICAL EXAMINATION: AT/NC , HEAD AND NECK: Atraumatic and normocephalic. CHEST: Clear to auscultation.HEART: S1, S2. Regular rate and rhythm. ABDOMEN: SoftMUSCULOSKELETAL: Atrophied musculature. Lateralized motor deficit.NEUROLOGIC: The patient is malnourished. The patient appears delirious. LABORATORY DATA: Dated 06/04/2020, reviewed ASSESSMENT: 1. COVID-19 related deconditioning and general weakness. 2. Metabolic encephalopathy. 3. Acute /chronic anemia 4. Hyponatremia. 4. Hyperkalemia. 5. Abnormal lipase. 6. Hypothyroidism. 7. Cachexia and malnourishment. 8. Macrocytic anemia. Plan: SCD in place Re check cbc Notes from Urology reviewed will defer Urological workup as an outpatient Subjective Allergies: Coded Allergies: No Known Allergies (Unverified , 05/31/20) Objective Last 24 Hour Vital Signs Date Time Temp Pulse Resp B/P (MAP) Pulse Ox O2 Delivery O2 Flow Rate FiO2 06/04/20 09:00 Room Air 06/04/20 08:00 98.2 94 18 132/65 (87) 95 06/04/20 04:00 97.9 100 18 132/87 (102) 94 06/04/20 00:00 97.5 54 18 123/85 (98) 96 06/03/20 21:00 Room Air 06/03/20 20:00 97.9 100 18 132/87 (102) 96 06/03/20 16:00 97.8 95 18 130/65 (86) 95 06/03/20 12:00 98.2 85 18 110/67 (81) 96 Intake and Output 06/03/20 06/04/20 19:00 07:00 Intake Total 925 ml Output Total 400 ml 250 ml Balance 525 ml -250 ml Intake Free Water 20 ml IV Total 385 ml Tube Feeding 520 ml Output Urine Total 400 ml 250 ml Laboratory Tests 06/04/20 06:23: White Blood Count 8.0, Red Blood Count 2.72L, Hemoglobin 9.3L, Hematocrit 29.1L , Mean Corpuscular Volume 107H, Mean Corpuscular Hemoglobin 34.2H, Mean Corpuscular Hemoglobin Concent 32.0, Red Cell Distribution Width 14.3, Platelet Count 223, Mean Platelet Volume 5.8L, Neutrophils (%) (Auto) 69.8, Lymphocytes ( %) (Auto) 18.3L, Monocytes (%) (Auto) 9.3, Eosinophils (%) (Auto) 1.1, Basophils (%) (Auto) 1.5, Sodium Level 142, Potassium Level 3.5, Chloride Level 106, Carbon Dioxide Level 26, Anion Gap 10, Blood Urea Nitrogen 30H, Creatinine 1.0, Estimat Glomerular Filtration Rate 52.5, Glucose Level 128H, Calcium Level 8.9, Total Bilirubin 0.5, Aspartate Amino Transf (AST/SGOT) 69H, Alanine Aminotransferase (ALT/SGPT) 101H, Alkaline Phosphatase 112, Total Protein 6.9, Albumin 3.0L, Globulin 3.9, Albumin/Globulin Ratio 0.8L Height (Feet): 5 Height (Inches): 7.00 Weight (Pounds): 140 Tiffanie Ott MD Jun 04, 2020 11:34
[2020-06-04 12:00] VITALS: BP 110/79
--- NOTE | 2020-06-04 12:17 | Nephrology Progress Note ---
Assessment/Plan Problem List: (1) Hyponatremia syndrome (2) Hematuria (3) Pneumonia due to COVID-19 virus (4) UTI (urinary tract infection) (5) Generalized weakness Assessment 1. COVID-19 related deconditioning and general weakness. 2. Metabolic encephalopathy. 3. Hyponatremia. 4. Hyperkalemia. 5. Elevated lipase. Level of 676. 6. Hypothyroidism. Elevated TSH level. 7. Cachexia and malnourishment. 8. Macrocytic anemia. Plan Electrolyte abnormalities corrected Recheck lab tomorrow Anemia work-up noted Monitor electrolytes Per orders Subjective ROS Limited/Unobtainable: No Constitutional: Reports: malaise Objective Objective Last 24 Hour Vital Signs Date Time Temp Pulse Resp B/P (MAP) Pulse Ox O2 Delivery O2 Flow Rate FiO2 06/04/20 09:00 Room Air 06/04/20 08:00 98.2 94 18 132/65 (87) 95 06/04/20 04:00 97.9 100 18 132/87 (102) 94 06/04/20 00:00 97.5 54 18 123/85 (98) 96 06/03/20 21:00 Room Air 06/03/20 20:00 97.9 100 18 132/87 (102) 96 06/03/20 16:00 97.8 95 18 130/65 (86) 95 Intake and Output 06/03/20 06/04/20 19:00 07:00 Intake Total 925 ml Output Total 400 ml 250 ml Balance 525 ml -250 ml Intake Free Water 20 ml IV Total 385 ml Tube Feeding 520 ml Output Urine Total 400 ml 250 ml Laboratory Tests 06/04/20 06:23: White Blood Count 8.0, Red Blood Count 2.72L, Hemoglobin 9.3L, Hematocrit 29.1L , Mean Corpuscular Volume 107H, Mean Corpuscular Hemoglobin 34.2H, Mean Corpuscular Hemoglobin Concent 32.0, Red Cell Distribution Width 14.3, Platelet Count 223, Mean Platelet Volume 5.8L, Neutrophils (%) (Auto) 69.8, Lymphocytes ( %) (Auto) 18.3L, Monocytes (%) (Auto) 9.3, Eosinophils (%) (Auto) 1.1, Basophils (%) (Auto) 1.5, Sodium Level 142, Potassium Level 3.5, Chloride Level 106, Carbon Dioxide Level 26, Anion Gap 10, Blood Urea Nitrogen 30H, Creatinine 1.0, Estimat Glomerular Filtration Rate 52.5, Glucose Level 128H, Calcium Level 8.9, Total Bilirubin 0.5, Aspartate Amino Transf (AST/SGOT) 69H, Alanine Aminotransferase (ALT/SGPT) 101H, Alkaline Phosphatase 112, Total Protein 6.9, Albumin 3.0L, Globulin 3.9, Albumin/Globulin Ratio 0.8L Height (Feet): 5 Height (Inches): 7.00 Weight (Pounds): 140 General Appearance: no apparent distress Cardiovascular: tachycardia Respiratory/Chest: decreased breath sounds Objective No change Mendoza Ponce MD Jun 04, 2020 12:17
--- NOTE | 2020-06-04 12:38 | Infectious Diseases Prog Note ---
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 Will continue to follow along with you. Discussed with RN. Subjective Allergies: Coded Allergies: No Known Allergies (Unverified , 05/31/20) afebrile no leukocytosis at RA Objective Last 24 Hour Vital Signs Date Time Temp Pulse Resp B/P (MAP) Pulse Ox O2 Delivery O2 Flow Rate FiO2 06/04/20 09:00 Room Air 06/04/20 08:00 98.2 94 18 132/65 (87) 95 06/04/20 04:00 97.9 100 18 132/87 (102) 94 06/04/20 00:00 97.5 54 18 123/85 (98) 96 06/03/20 21:00 Room Air 06/03/20 20:00 97.9 100 18 132/87 (102) 96 06/03/20 16:00 97.8 95 18 130/65 (86) 95 Height (Feet): 5 Height (Inches): 7.00 Weight (Pounds): 140 General Appearance: no apparent distress, HEENT: normocephalic, atraumatic, anicteric, PERRL Neck: supple Respiratory/Chest: lungs clear - with moderate ait exchange , no accessory muscle use Cardiovascular/Chest: normal rate Abdomen: non tender, soft, feeding tube - G tube , site clean, covered with dressing Extremities: no calf tenderness, no edema Neurologic: abnormal gait, alert, responsive - confused Musculoskeletal: atrophy - BLE Laboratory Tests Test 06/04/20 06:23 White Blood Count 8.0 K/UL (4.8-10.8) Red Blood Count 2.72 M/UL (4.20-5.40) L Hemoglobin 9.3 G/DL (12.0-16.0) L Hematocrit 29.1 % (37.0-47.0) L Mean Corpuscular Volume 107 FL (80-99) H Mean Corpuscular Hemoglobin 34.2 PG (27.0-31.0) H Mean Corpuscular Hemoglobin Concent 32.0 G/DL (32.0-36.0) Red Cell Distribution Width 14.3 % (11.6-14.8) Platelet Count 223 K/UL (150-450) Mean Platelet Volume 5.8 FL (6.5-10.1) L Neutrophils (%) (Auto) 69.8 % (45.0-75.0) Lymphocytes (%) (Auto) 18.3 % (20.0-45.0) L Monocytes (%) (Auto) 9.3 % (1.0-10.0) Eosinophils (%) (Auto) 1.1 % (0.0-3.0) Basophils (%) (Auto) 1.5 % (0.0-2.0) Sodium Level 142 MMOL/L (136-145) Potassium Level 3.5 MMOL/L (3.5-5.1) Chloride Level 106 MMOL/L (98-107) Carbon Dioxide Level 26 MMOL/L (21-32) Anion Gap 10 mmol/L (5-15) Blood Urea Nitrogen 30 mg/dL (7-18) H Creatinine 1.0 MG/DL (0.55-1.30) Estimat Glomerular Filtration Rate 52.5 mL/min (>60) Glucose Level 128 MG/DL (74-106) H Calcium Level 8.9 MG/DL (8.5-10.1) Total Bilirubin 0.5 MG/DL (0.2-1.0) Aspartate Amino Transf (AST/SGOT) 69 U/L (15-37) H Alanine Aminotransferase (ALT/SGPT) 101 U/L (12-78) H Alkaline Phosphatase 112 U/L (46-116) Total Protein 6.9 G/DL (6.4-8.2) Albumin 3.0 G/DL (3.4-5.0) L Globulin 3.9 g/dL Albumin/Globulin Ratio 0.8 (1.0-2.7) L Current Medications Medications (Trade) Dose Ordered Sig/Boo Route PRN Reason Start Time Stop Time Status Last Admin Dose Admin Acetaminophen (Tylenol) 500 mg Q6HR PRN ORAL Mild Pain (Pain Scale 1-3) 05/31/20 23:45 06/30/20 23:44 Acetaminophen (Tylenol) 650 mg Q6H PRN ORAL Temp >100.5 05/31/20 23:45 06/30/20 23:44 Albuterol Sulfate (Proventil MDI) 2 puff Q4H PRN INH Shortness of Breath 06/01/20 09:15 08/30/20 09:14 Ceftriaxone Sodium 1 gm/ Dextrose 55 ml @ 110 mls/hr Q24H IVPB 06/02/20 11:15 06/09/20 11:14 06/03/20 11:01 Dextrose (Dextrose 50%) 25 ml Q30M PRN IV Hypoglycemia 06/01/20 00:15 08/30/20 00:14 Dextrose (Dextrose 50%) 50 ml Q30M PRN IV Hypoglycemia 06/01/20 00:15 08/30/20 00:14 Divalproex Sodium (Depakote) 250 mg EVERY 12 HOURS ORAL 06/04/20 09:00 07/04/20 08:59 06/04/20 09:17 Docusate Sodium (Colace) 100 mg THREE TIMES A DAY GT 06/01/20 18:00 07/01/20 17:59 06/04/20 09:17 Insulin Aspart (NovoLOG) Q6HR SUBQ 06/02/20 12:00 08/31/20 11:59 06/02/20 17:39 Levothyroxine Sodium (Synthroid) 50 mcg DAILY@0630 ORAL 06/02/20 06:30 07/02/20 06:29 06/04/20 06:59 Morphine Sulfate (Morphine Sulfate) 2 mg Q6HR PRN IVP Severe Pain (Pain Scale 7-10) 05/31/20 23:45 06/07/20 23:44 06/02/20 15:10 Ondansetron HCl (Zofran) 4 mg Q6H PRN IVP Nausea & Vomiting 05/31/20 23:45 06/30/20 23:44 Pantoprazole (Protonix) 40 mg BID ORAL 06/01/20 18:00 07/01/20 08:59 06/04/20 09:17 Quetiapine Fumarate (SEROqueL) 25 mg Q8H PRN ORAL Restlessness 06/02/20 07:30 07/17/20 07:29 06/02/20 17:25 Caitlin Torres M.D. Jun 04, 2020 12:38
[2020-06-04] MEDS: cefTRIAXone 1 GM in D5W 55 ML IVPB SCH (12:40)
--- NOTE | 2020-06-04 14:20 | Diagnostic Imaging Report ---
EXAM: ULTRASOUND US ABD limited CLINICAL HISTORY: Abdominal pain. Elevated LFTs. Elevated lipase. COMPARISON: None TECHNIQUE: Ultrasound examination of the right upper quadrant includes grayscale images, and color and spectral doppler analysis. FINDINGS: Study is very technically limited due to overlying bowel gas. There is very limited visualization of the liver. Parenchyma appears slightly heterogeneous. No definite ductal dilatation noted. Gallbladder, bile duct and pancreas are not adequately visualized. Examination of the pelvis was attempted but essentially nondiagnostic due to bowel gas and patient inability to cooperate. IMPRESSION: EXTREMELY LIMITED EXAM OF THE RIGHT UPPER QUADRANT WITH VERY LIMITED VISUALIZATION OF THE LIVER. GALLBLADDER, CBD AND PANCREAS OTHERWISE ESSENTIALLY NONVISUALIZED. CONSIDER CORRELATION WITH CT.
[2020-06-04 16:00] VITALS: BP 134/86
--- NOTE | 2020-06-04 16:16 | NUR ---
*-*DISCHARGE PLANNING*-* PATIENT HAS BEEN REFERRED TO: [facility] P: [phone] S/W MICHELLE, WHO STATED, THEY ARE WAITING FOR THE AUTH FROM [facility], TO ACCEPT THIS PT BACK.
--- NOTE | 2020-06-04 16:22 | NUR ---
INSURANCE REVIEWS AND CLINICALS FAXED TO [facility] F: [phone] CALLED [facility] AND SPOKE WITH TARSHA EXPLAINED TO TARSHA PATIENT IS READY FOR DISCHARGE BUT THE [facility] IS WAITING FOR THE AUTHORIZATION FROM THEM PER TARSHA, THE CHIEF SALES OFFICER IS EDGAR MONROE...SHE WILL GIVE HIM THE MESSAGE AND HAVE HIM CALL US BACK Addendum: 06/05/20 at 1239 by ADALBERTO PAPPAS CM Ref#[id number]
--- NOTE | 2020-06-04 19:38 | NUR ---
HAND-OFF: Report given to NOBLE Mcneill. Patient is in stable condition.
--- NOTE | 2020-06-04 19:45 | NUR ---
NURSE NOTES: Patient in bed, awake and confused. On room air with no signs of distress or SOB. Abraham in place and draining to gravity. G-tube in place and running as ordered. IV intact and patent. Bilat soft wrist restraints in progress, no redness, swelling; pulses palpable. Bed locked and in lowest position. Call light in reach. Will continue plan of care.
[2020-06-04 20:00] VITALS: BP 128/55
--- NOTE | 2020-06-04 20:57 | Psych Consult Progress Note ---
Psychiatry Progress Note Psychiatry Progress Note Subjective the pt is agitated coming out o bed low appetite poor memory Medications Current Medications Medications (Trade) Dose Ordered Sig/Boo Route PRN Reason Start Time Stop Time Status Last Admin Dose Admin Acetaminophen (Tylenol) 500 mg Q6HR PRN ORAL Mild Pain (Pain Scale 1-3) 05/31/20 23:45 06/30/20 23:44 Acetaminophen (Tylenol) 650 mg Q6H PRN ORAL Temp >100.5 05/31/20 23:45 06/30/20 23:44 Albuterol Sulfate (Proventil MDI) 2 puff Q4H PRN INH Shortness of Breath 06/01/20 09:15 08/30/20 09:14 Ceftriaxone Sodium 1 gm/ Dextrose 55 ml @ 110 mls/hr Q24H IVPB 06/02/20 11:15 06/09/20 11:14 06/04/20 12:40 Dextrose (Dextrose 50%) 25 ml Q30M PRN IV Hypoglycemia 06/01/20 00:15 08/30/20 00:14 Dextrose (Dextrose 50%) 50 ml Q30M PRN IV Hypoglycemia 06/01/20 00:15 08/30/20 00:14 Divalproex Sodium (Depakote) 250 mg EVERY 12 HOURS ORAL 06/04/20 09:00 07/04/20 08:59 06/04/20 20:55 Docusate Sodium (Colace) 100 mg THREE TIMES A DAY GT 06/01/20 18:00 07/01/20 17:59 06/04/20 17:37 Insulin Aspart (NovoLOG) Q6HR SUBQ 06/02/20 12:00 08/31/20 11:59 06/02/20 17:39 Levothyroxine Sodium (Synthroid) 50 mcg DAILY@0630 ORAL 06/02/20 06:30 07/02/20 06:29 06/04/20 06:59 Morphine Sulfate (Morphine Sulfate) 2 mg Q6HR PRN IVP Severe Pain (Pain Scale 7-10) 05/31/20 23:45 06/07/20 23:44 06/02/20 15:10 Ondansetron HCl (Zofran) 4 mg Q6H PRN IVP Nausea & Vomiting 05/31/20 23:45 06/30/20 23:44 Pantoprazole (Protonix) 40 mg BID ORAL 06/01/20 18:00 07/01/20 08:59 06/04/20 17:38 Quetiapine Fumarate (SEROqueL) 25 mg Q8H PRN ORAL Restlessness 06/02/20 07:30 07/17/20 07:29 06/02/20 17:25 Allergies: Coded Allergies: No Known Allergies (Unverified , 05/31/20) Objective Data Height (Feet): 5 Height (Inches): 7.00 Weight (Pounds): 140 Additional Comments: alert and disoriented to situation and place. Mood is agitated. Affect is flat. Thought process, there is a paucity of thought content. Thought content, no suicidal or homicidal ideation. Cognition is impaired. Insight and judgment is impaired. Assessment/Plan Problem List: (1) Dementia with behavioral disturbance ICD Codes: F03.91 - Unspecified dementia with behavioral disturbance SNOMED: [id number] Assessment/Plan: dc risperdal seroquel prn and standing Jeff Wilkins MD Jun 04, 2020 20:57
[2020-06-05] VITALS: BP 133/54
[2020-06-05] MEDS: NovoLOG Insulin Flexpen SUBQ SCH ×5 (00:52→23:43)
[2020-06-05 04:00] VITALS: BP 140/102
[2020-06-05 06:14] LABS: BASOPHILS % (AUTO) 0.9 % (0.0-2.0); EOSINOPHILS % (AUTO) 2.4 % (0.0-3.0); HEMATOCRIT 28.4 % (37.0-47.0); HEMOGLOBIN 9.1 G/DL (12.0-16.0); MEAN CORPUSCULAR VOLUME 107 FL (80-99); MONOCYTES % (AUTO) 10.2 % (1.0-10.0); NEUTROPHILS % (AUTO) 67.5 % (45.0-75.0); PLATELET COUNT 193 K/UL (150-450); RED BLOOD COUNT 2.65 M/UL (4.20-5.40); RED CELL DISTRIBUTION WIDTH 14.8 % (11.6-14.8); WHITE BLOOD COUNT 5.6 K/UL (4.8-10.8)
[2020-06-05 08:00] VITALS: BP 120/63
--- NOTE | 2020-06-05 08:00 | NUR ---
NURSE NOTES: Patient awake ,respirations unlabored.G-tube feeding ongoing as ordered Will stop G-tube feedings for the 2hours as ordered.Abraham catheter is in place,urine clear spencer.HOB is elevated,soft wrist restraints on.Bed alarm on.
--- NOTE | 2020-06-05 08:50 | General Progress Note ---
Assessment/Plan Assessment/Plan: S: poor historian O: seems agitated, PHYSICAL EXAMINATION: AT/NC , HEAD AND NECK: Atraumatic and normocephalic. CHEST: Clear to auscultation.HEART: S1, S2. Regular rate and rhythm. ABDOMEN: SoftMUSCULOSKELETAL: Atrophied musculature. Lateralized motor deficit.NEUROLOGIC: The patient is malnourished. The patient appears delirious. LABORATORY DATA: Dated 06/05/2020, reviewed ASSESSMENT: 1. COVID-19 related deconditioning and general weakness. 2. Metabolic encephalopathy. 3. Acute /chronic anemia 4. Hyponatremia. 4. Hyperkalemia. 5. Abnormal lipase. 6. Hypothyroidism. 7. Cachexia and malnourishment. 8. Macrocytic anemia. Plan: SCD in place Re check cbc Notes from Urology reviewed will defer Urological workup as an outpatient Subjective Allergies: Coded Allergies: No Known Allergies (Unverified , 05/31/20) Objective Last 24 Hour Vital Signs Date Time Temp Pulse Resp B/P (MAP) Pulse Ox O2 Delivery O2 Flow Rate FiO2 06/05/20 04:00 97.7 95 24 140/102 (115) 100 06/05/20 00:00 97.7 96 24 133/54 (80) 98 06/04/20 21:00 Room Air 06/04/20 20:00 98.1 94 24 128/55 (79) 98 06/04/20 16:00 97.2 89 18 134/86 (102) 98 06/04/20 12:00 97.6 100 18 110/79 (89) 95 06/04/20 09:00 Room Air Intake and Output 06/04/20 06/05/20 19:00 07:00 Output Total 600 ml 400 ml Balance -600 ml -400 ml Output Urine Total 600 ml 400 ml # Bowel Movements 1 Laboratory Tests 06/05/20 05:20: White Blood Count 5.6, Red Blood Count 2.65L, Hemoglobin 9.1L, Hematocrit 28.4L , Mean Corpuscular Volume 107H, Mean Corpuscular Hemoglobin 34.2H, Mean Corpuscular Hemoglobin Concent 31.9L, Red Cell Distribution Width 14.8, Platelet Count 193, Mean Platelet Volume 6.6, Neutrophils (%) (Auto) 67.5, Lymphocytes (%) (Auto) 19.0L, Monocytes (%) (Auto) 10.2H, Eosinophils (%) (Auto ) 2.4, Basophils (%) (Auto) 0.9 Height (Feet): 5 Height (Inches): 7.00 Weight (Pounds): 138 Tiffanie Ott MD Jun 05, 2020 08:50
[2020-06-05] MEDS ORDERED: Depakote 500mg tab ORAL SCH (09:00)
[2020-06-05] MEDS: Docusate 100mg/10ml Liq GT SCH ×3 (10:45→19:05)
[2020-06-05] MEDS: Valproic Acid 250mg/5ml Liquid GT SCH ×2 (10:45→20:01)
--- NOTE | 2020-06-05 10:55 | NUR ---
RD ASSESSMENT & RECOMMENDATIONS SEE CARE ACTIVITY FOR COMPLETE ASSESSMENT DAILY ESTIMATED NEEDS: Needs based on wound, pulmonary 54.6kg 25-35 kcals/kg 9679-3452 total kcals 1.25-1.5 g protein/kg 68-82 g total protein 25--30ml/kcal mL/kg 9277-0458 total fluid mLs NUTRITION DIAGNOSIS: Swallowing difficulty r/t dysphagia as evidenced by pt is PEG dep. CURRENT TF: Glucerna 1.5 @45ml/hr x22 hrs ENTERAL NUTRITION RECOMMENDATIONS: Glucerna 1.5 w/ goal of 45ml/hr x22 hrs to provide 990ml, 1485kcal, 82g pro, 751ml free H2O - Maintain Glucerna 1.5 @goal as tolerated - Hold for 1 hr before and after sythroid meds - Flush per MD. HOB over 30 degrees ADDITIONAL RECOMMENDATIONS: 1) TF recs as above 2) Per SNF: 5'3" and 120.2lbs (54.64kg) 3) Monitor lytes w/ TF and daily wts 4) Wound care: add Juan C in 4oz water BID via GT
--- NOTE | 2020-06-05 11:14 | Pulmonology Progress Note ---
Sherri Henry POTATO PANCAKE FRIER 06/05/20 1114: Subjective ROS Limited/Unobtainable: No Allergies: Coded Allergies: No Known Allergies (Unverified , 05/31/20) Subjective in COVID isolation, remains afebrile , no leukocytosis pulse ox stable on RA Objective Last 24 Hour Vital Signs Date Time Temp Pulse Resp B/P (MAP) Pulse Ox O2 Delivery O2 Flow Rate FiO2 06/05/20 08:00 97.8 99 20 120/63 (82) 100 06/05/20 04:00 97.7 95 24 140/102 (115) 100 06/05/20 00:00 97.7 96 24 133/54 (80) 98 06/04/20 21:00 Room Air 06/04/20 20:00 98.1 94 24 128/55 (79) 98 06/04/20 16:00 97.2 89 18 134/86 (102) 98 06/04/20 12:00 97.6 100 18 110/79 (89) 95 Intake and Output 06/04/20 06/05/20 19:00 07:00 Output Total 600 ml 400 ml Balance -600 ml -400 ml Output Urine Total 600 ml 400 ml # Bowel Movements 1 Objective General Appearance: no apparent distress, demented thin Romanian speaking bedridden female in NAD Lines, tubes and drains: peripheral HEENT: normocephalic, atraumatic, anicteric, PERRL Neck: supple Respiratory/Chest: lungs clear with moderate air exchange , no accessory muscle use Cardiovascular/Chest: normal rate Abdomen: non tender, soft, feeding tube /G tube , site clean, covered with dressing Extremities: no calf tenderness, no edema Neurologic: abnormal gait, alert, responsive confused a Musculoskeletal: atrophy BLE Laboratory Tests 06/04/20 12:44: POC Whole Blood Glucose 102 06/04/20 17:26: POC Whole Blood Glucose [Pending] 06/05/20 05:20: White Blood Count 5.6, Red Blood Count 2.65L, Hemoglobin 9.1L, Hematocrit 28.4L , Mean Corpuscular Volume 107H, Mean Corpuscular Hemoglobin 34.2H, Mean Corpuscular Hemoglobin Concent 31.9L, Red Cell Distribution Width 14.8, Platelet Count 193, Mean Platelet Volume 6.6, Neutrophils (%) (Auto) 67.5, Lymphocytes (%) (Auto) 19.0L, Monocytes (%) (Auto) 10.2H, Eosinophils (%) (Auto ) 2.4, Basophils (%) (Auto) 0.9 Current Medications Medications (Trade) Dose Ordered Sig/Boo Route PRN Reason Start Time Stop Time Status Last Admin Dose Admin Acetaminophen (Tylenol) 500 mg Q6HR PRN ORAL Mild Pain (Pain Scale 1-3) 05/31/20 23:45 06/30/20 23:44 Acetaminophen (Tylenol) 650 mg Q6H PRN ORAL Temp >100.5 05/31/20 23:45 06/30/20 23:44 Albuterol Sulfate (Proventil MDI) 2 puff Q4H PRN INH Shortness of Breath 06/01/20 09:15 08/30/20 09:14 Ceftriaxone Sodium 1 gm/ Dextrose 55 ml @ 110 mls/hr Q24H IVPB 06/02/20 11:15 06/09/20 11:14 06/04/20 12:40 Dextrose (Dextrose 50%) 25 ml Q30M PRN IV Hypoglycemia 06/01/20 00:15 08/30/20 00:14 Dextrose (Dextrose 50%) 50 ml Q30M PRN IV Hypoglycemia 06/01/20 00:15 08/30/20 00:14 Docusate Sodium (Colace) 100 mg THREE TIMES A DAY GT 06/01/20 18:00 07/01/20 17:59 06/05/20 10:45 Insulin Aspart (NovoLOG) Q6HR SUBQ 06/02/20 12:00 08/31/20 11:59 06/02/20 17:39 Lansoprazole (Prevacid) 30 mg BID GT 06/05/20 11:00 07/05/20 10:59 06/05/20 10:50 Levothyroxine Sodium (Synthroid) 50 mcg DAILY@0630 ORAL 06/02/20 06:30 07/02/20 06:29 06/05/20 05:48 Morphine Sulfate (Morphine Sulfate) 2 mg Q6HR PRN IVP Severe Pain (Pain Scale 7-10) 05/31/20 23:45 06/07/20 23:44 06/02/20 15:10 Ondansetron HCl (Zofran) 4 mg Q6H PRN IVP Nausea & Vomiting 05/31/20 23:45 06/30/20 23:44 Quetiapine Fumarate (SEROqueL) 25 mg Q8H PRN ORAL Restlessness 06/02/20 07:30 07/17/20 07:29 06/02/20 17:25 Valproic Acid (Depakene) 500 mg EVERY 12 HOURS GT 06/05/20 10:45 07/05/20 10:44 06/05/20 10:45 Assessment/Plan Assessment/Plan ASSESSMENT COVID infection Hematuria vs vaginal bleeding Hyponatremia CHRIS, probably due to dehydration Dysphagia, feeding by G tube DM Dementia Elevated TSH , probably hypothyroidism Elevated lipase PLAN OF CARE MS floor isolation for COVID repeated rapid COVID 06/01 positive on steroids x 3 days, sterdis and Azithromycin dc since CXR clear MDI check inflam markers to acces risk for cytokine storm-> ferritin 448, CRP 2.3m LDH 206, but D dimer 16.5 DVT prophayxlis with Lovenox pulse ox stable on RA consider CT chest -> for prominent right paratracheal stripe seen on CXR r/o adenopathy. not emergent, can be done as OP when COVID free asp precautions, GT feeding nephro follows for hypo Na management, s/p hypertonic solution, Na stabilized GI prophylaxis abx per ID recs-Ceftriaxone UCX +Diphtheroids, contaminant abx dc per ID note get pelvic US, given hematuria , possible vaginal bleeding monitor HH, abd US as ordered by attending trend lipase BS management with sensitive SSI TSH elevated; started on levothyroxine per attending , repeat TFT in 4 wks supportive care ask psych for management of anxiety behavior thank you for a consult! case discussed and evaluated by supervising physician! Jesus Alberto Paris MD 06/05/202: Subjective Allergies: Coded Allergies: No Known Allergies (Unverified , 05/31/20) Assessment/Plan Assessment/Plan Patient seen and examined with POTATO PANCAKE FRIER. Agree with above A&P as it reflects our joint deliberations. Sherri Henry POTATO PANCAKE FRIER Jun 05, 2020 11:14 Jesus Alberto Paris MD Jun 05, 2020 21:42
[2020-06-05] MEDS: cefTRIAXone 1 GM in D5W 55 ML IVPB SCH (11:15)
[2020-06-05 12:00] VITALS: BP 118/70
--- NOTE | 2020-06-05 12:01 | Nephrology Progress Note ---
Assessment/Plan Problem List: (1) Hyponatremia syndrome (2) Hematuria (3) Pneumonia due to COVID-19 virus (4) UTI (urinary tract infection) (5) Generalized weakness Assessment 1. COVID-19 related deconditioning and general weakness. 2. Metabolic encephalopathy. 3. Hyponatremia. 4. Hyperkalemia. 5. Elevated lipase. Level of 676. 6. Hypothyroidism. Elevated TSH level. 7. Cachexia and malnourishment. 8. Macrocytic anemia. Plan Electrolyte abnormalities corrected No labs today, recheck lab tomorrow Anemia work-up noted Monitor electrolytes Per orders Subjective ROS Limited/Unobtainable: No Constitutional: Reports: malaise, weakness Objective Objective Last 24 Hour Vital Signs Date Time Temp Pulse Resp B/P (MAP) Pulse Ox O2 Delivery O2 Flow Rate FiO2 06/05/20 08:00 97.8 99 20 120/63 (82) 100 06/05/20 04:00 97.7 95 24 140/102 (115) 100 06/05/20 00:00 97.7 96 24 133/54 (80) 98 06/04/20 21:00 Room Air 06/04/20 20:00 98.1 94 24 128/55 (79) 98 06/04/20 16:00 97.2 89 18 134/86 (102) 98 Intake and Output 06/04/20 06/05/20 19:00 07:00 Output Total 600 ml 400 ml Balance -600 ml -400 ml Output Urine Total 600 ml 400 ml # Bowel Movements 1 Laboratory Tests 06/04/20 12:44: POC Whole Blood Glucose 102 06/04/20 17:26: POC Whole Blood Glucose [Pending] 06/05/20 05:20: White Blood Count 5.6, Red Blood Count 2.65L, Hemoglobin 9.1L, Hematocrit 28.4L , Mean Corpuscular Volume 107H, Mean Corpuscular Hemoglobin 34.2H, Mean Corpuscular Hemoglobin Concent 31.9L, Red Cell Distribution Width 14.8, Platelet Count 193, Mean Platelet Volume 6.6, Neutrophils (%) (Auto) 67.5, Lymphocytes (%) (Auto) 19.0L, Monocytes (%) (Auto) 10.2H, Eosinophils (%) (Auto ) 2.4, Basophils (%) (Auto) 0.9 Height (Feet): 5 Height (Inches): 7.00 Weight (Pounds): 138 General Appearance: no apparent distress Objective No change Mendoza Ponce MD Jun 05, 2020 12:01
--- NOTE | 2020-06-05 14:20 | General Progress Note ---
Assessment/Plan Assessment/Plan: COVID infection Hematuria vs vaginal bleeding Dysphagia, feeding by G tube DM Dementia Elevated LFTS Elevated lipase anemia abd us reviewed repeat labs GTF doubt pancreatitis anemia work up Subjective ROS Limited/Unobtainable: No Allergies: Coded Allergies: No Known Allergies (Unverified , 05/31/20) Objective Last 24 Hour Vital Signs Date Time Temp Pulse Resp B/P (MAP) Pulse Ox O2 Delivery O2 Flow Rate FiO2 06/05/20 09:00 Room Air 06/05/20 08:00 97.8 99 20 120/63 (82) 100 06/05/20 04:00 97.7 95 24 140/102 (115) 100 06/05/20 00:00 97.7 96 24 133/54 (80) 98 06/04/20 21:00 Room Air 06/04/20 20:00 98.1 94 24 128/55 (79) 98 06/04/20 16:00 97.2 89 18 134/86 (102) 98 Intake and Output 06/04/20 06/05/20 19:00 07:00 Output Total 600 ml 400 ml Balance -600 ml -400 ml Output Urine Total 600 ml 400 ml # Bowel Movements 1 Laboratory Tests 06/04/20 17:26: POC Whole Blood Glucose [Pending] 06/05/20 05:20: White Blood Count 5.6, Red Blood Count 2.65L, Hemoglobin 9.1L, Hematocrit 28.4L , Mean Corpuscular Volume 107H, Mean Corpuscular Hemoglobin 34.2H, Mean Corpuscular Hemoglobin Concent 31.9L, Red Cell Distribution Width 14.8, Platelet Count 193, Mean Platelet Volume 6.6, Neutrophils (%) (Auto) 67.5, Lymphocytes (%) (Auto) 19.0L, Monocytes (%) (Auto) 10.2H, Eosinophils (%) (Auto ) 2.4, Basophils (%) (Auto) 0.9 06/05/20 12:31: POC Whole Blood Glucose [Pending] Height (Feet): 5 Height (Inches): 7.00 Weight (Pounds): 138 General Appearance: no apparent distress EENT: normal ENT inspection Neck: supple Cardiovascular: normal rate Respiratory/Chest: decreased breath sounds Abdomen: normal bowel sounds, non tender, soft Extremities: non-tender Kenny Anaya MD 29, 2020 14:20
--- NOTE | 2020-06-05 14:50 | NUR ---
BLOCK ENGRAVER NOTE CALL MADE TO NARENDRA TOVAR AT [facility] [phone] TO FOLLOW UP ON STATUS OF JESSICA FOR [facility]. NO ANSWER AT TIME OF CALL. VM LEFT REQUESTING CALL BACK. Addendum: 06/05/20 at 1512 by ARNAV CHANCE LVN LVN CALL BACK RECEIVED FROM NARENDRA TOVAR AT . PER NARENDRA, PATIENT IS A [facility] C[facility] PATIENT (RETIREMENT) AND JESSICA REQUESTS MUST BE MADE TO [facility] DEPT @ [phone] CALL MADE TO ADENIKE CROWLEY. ADMISSIONS NOT AVAILABLE. WILL CALL BACK.
--- NOTE | 2020-06-05 15:17 | NUR ---
DISCHARGE PLANNING CALL MADE TO [facility] DEPT [phone]. S/W MARGO IN RE TO AUTH/JESSICA FOR [facility]. MARGO INFORMED OF PATIENTS COVID (+) STATUS AND DC STATUS. PER MARGO, SHE WILL NEED TO CONFIRM WITH HER HEDIS REVIEW NURSE IN RE TO PROTOCOL TO PROVIDE AUTH FOR THIS PATIENT ANS CALL THIS CM WITH UPDATE.
--- NOTE | 2020-06-05 15:47 | Infectious Diseases Prog Note ---
Assessment/Plan Assessment: Recent COVID19 (dx'ed 05/12/20)- at RA - still PCR positive, no active PNA -05/31 Rapid COVID PCR + CXR: no acute cardiopulmonary disease Mild pyuria Gross hematuria -u/a RBC tnct, wbc 5-10, nit neg, leuk +2; ucx >100k diphteroids (contaminant) Afebrile No leukocytosis Hyponatremia, SP Mild hyperkalemia, SP Elevated LFTs -Abd US: EXTREMELY LIMITED EXAM OF THE RIGHT UPPER QUADRANT WITH VERY LIMITED VISUALIZATION OF THE LIVER. GALLBLADDER, CBD AND PANCREAS OTHERWISE ESSENTIALLY NONVISUALIZED. CONSIDER CORRELATION WITH CT. Dementia Dm2 HLD MDD sacral decubitus ulcer dysphagia s/p GT recent COVID19 (test positive on 05/12/20) SNF resident VRE colonized Plan: -Cont to monitor off abx -06/04 SP Ceftriaxone #3 -06/03 SP Azithromycin and Decadron #2 -f/u cx -Monitor CBC/CMP, temperatures; CMP am Thank you for this consultation. Will continue to follow along with you. Discussed with RN. Subjective Allergies: Coded Allergies: No Known Allergies (Unverified , 05/31/20) afebrile no leukocytosis at RA Objective Last 24 Hour Vital Signs Date Time Temp Pulse Resp B/P (MAP) Pulse Ox O2 Delivery O2 Flow Rate FiO2 06/05/20 09:00 Room Air 06/05/20 08:00 97.8 99 20 120/63 (82) 100 06/05/20 04:00 97.7 95 24 140/102 (115) 100 06/05/20 00:00 97.7 96 24 133/54 (80) 98 06/04/20 21:00 Room Air 06/04/20 20:00 98.1 94 24 128/55 (79) 98 06/04/20 16:00 97.2 89 18 134/86 (102) 98 Height (Feet): 5 Height (Inches): 7.00 Weight (Pounds): 138 General Appearance: no apparent distress, HEENT: normocephalic, atraumatic, anicteric, PERRL Neck: supple Respiratory/Chest: lungs clear - with moderate ait exchange , no accessory muscle use Cardiovascular/Chest: normal rate Abdomen: non tender, soft, feeding tube - G tube , site clean, covered with dressing Extremities: no calf tenderness, no edema Neurologic: abnormal gait, alert, responsive - confused Musculoskeletal: atrophy - BLE Laboratory Tests Test 06/04/20 17:26 06/05/20 05:20 06/05/20 12:31 POC Whole Blood Glucose Pending Pending White Blood Count 5.6 K/UL (4.8-10.8) Red Blood Count 2.65 M/UL (4.20-5.40) L Hemoglobin 9.1 G/DL (12.0-16.0) L Hematocrit 28.4 % (37.0-47.0) L Mean Corpuscular Volume 107 FL (80-99) H Mean Corpuscular Hemoglobin 34.2 PG (27.0-31.0) H Mean Corpuscular Hemoglobin Concent 31.9 G/DL (32.0-36.0) L Red Cell Distribution Width 14.8 % (11.6-14.8) Platelet Count 193 K/UL (150-450) Mean Platelet Volume 6.6 FL (6.5-10.1) Neutrophils (%) (Auto) 67.5 % (45.0-75.0) Lymphocytes (%) (Auto) 19.0 % (20.0-45.0) L Monocytes (%) (Auto) 10.2 % (1.0-10.0) H Eosinophils (%) (Auto) 2.4 % (0.0-3.0) Basophils (%) (Auto) 0.9 % (0.0-2.0) Current Medications Medications (Trade) Dose Ordered Sig/Boo Route PRN Reason Start Time Stop Time Status Last Admin Dose Admin Acetaminophen (Tylenol) 500 mg Q6HR PRN ORAL Mild Pain (Pain Scale 1-3) 05/31/20 23:45 06/30/20 23:44 Acetaminophen (Tylenol) 650 mg Q6H PRN ORAL Temp >100.5 05/31/20 23:45 06/30/20 23:44 Albuterol Sulfate (Proventil MDI) 2 puff Q4H PRN INH Shortness of Breath 06/01/20 09:15 08/30/20 09:14 Dextrose (Dextrose 50%) 25 ml Q30M PRN IV Hypoglycemia 06/01/20 00:15 08/30/20 00:14 Dextrose (Dextrose 50%) 50 ml Q30M PRN IV Hypoglycemia 06/01/20 00:15 08/30/20 00:14 Docusate Sodium (Colace) 100 mg THREE TIMES A DAY GT 06/01/20 18:00 07/01/20 17:59 06/05/20 15:43 Insulin Aspart (NovoLOG) Q6HR SUBQ 06/02/20 12:00 08/31/20 11:59 06/02/20 17:39 Lansoprazole (Prevacid) 30 mg BID GT 06/05/20 11:00 07/05/20 10:59 06/05/20 10:50 Levothyroxine Sodium (Synthroid) 50 mcg DAILY@0630 ORAL 06/02/20 06:30 07/02/20 06:29 06/05/20 05:48 Morphine Sulfate (Morphine Sulfate) 2 mg Q6HR PRN IVP Severe Pain (Pain Scale 7-10) 05/31/20 23:45 06/07/20 23:44 06/02/20 15:10 Ondansetron HCl (Zofran) 4 mg Q6H PRN IVP Nausea & Vomiting 05/31/20 23:45 06/30/20 23:44 Quetiapine Fumarate (SEROqueL) 25 mg Q8H PRN ORAL Restlessness 06/02/20 07:30 07/17/20 07:29 06/02/20 17:25 Valproic Acid (Depakene) 500 mg EVERY 12 HOURS GT 06/05/20 10:45 07/05/20 10:44 06/05/20 10:45 Caitlin Torres M.D. Jun 05, 2020 15:47
[2020-06-05 16:00] VITALS: BP 105/58
--- NOTE | 2020-06-05 16:33 | NUR ---
INSURANCE REVIEWS AND CLINICALS FAXED TO [facility] F: [phone]
--- NOTE | 2020-06-05 16:34 | NUR ---
CASE MANAGEMENT:REVIEW SI;COVID PNA. HEMATURIA. HYPONATREMIA. PANCREATITIS. 98.1 99 24 140/102 98% ON RA IS;DEPAKENE GT Q12 SYNTHROID GT PROVENTIL INH SEROQUEL GT PREVACID GT BID MED SURG STATUS DCP;FROM [facility] DC PENDING JESSICA TO SNF FROM [facility]
--- NOTE | 2020-06-05 17:05 | NUR ---
CELEBRITY MANAGER NOTE CALL RECEIVED FROM NARENDRA TOVAR AT [facility] [phone]. PER NARENDRA, AUTH FOR [facility] HAS BEEN GENERATED AND WILL BE FAXED TO [facility] @ [phone]. CALL MADE TO [facility]. ADMISSIONS GONE FOR THE DAY. CALL MADE TO MICHELLE, ADMITTING REP FOR [facility] AND PROVIDED UPDATE ON AUTH STATUS. PER MICHELLE, HE WILL CONFIRM RECEIPT OF AUTH AND NOTIFY THIS CM TO PROVIDE BED.
--- NOTE | 2020-06-05 17:38 | NUR ---
SALES TECHNICIAN HOME THEATER NOTE:SNF FOLLOW UP CALL MADE TO MICHELLE. PER MICHELLE, HE HAS NOT YET RECEIVED THE AUTH FROM . HE WILL F/U IN THE MORNING.
--- NOTE | 2020-06-05 18:45 | NUR ---
NURSE NOTES: Patient incontinent of stool ,skin care given.Abraham catheter continue to drain through the day clear spencer color urine.Patient tolerating the G-tube feedings.HOB is elevated,Bilateral soft wrist restraints in place .Monitor for circulation..Bed alarm is omn.
--- NOTE | 2020-06-05 19:30 | NUR ---
HAND-OFF: Report given to Juan DICKEY aware of fall risk.
--- NOTE | 2020-06-05 19:40 | NUR ---
NURSE NOTES: Patient in bed, asleep at this time, on room air no SOB noted, no signs of pain. With bilateral soft wrist restraints. Pulse palpable. Call light in reach. Bed in lowest position, lock engaged and alarm on. Will continue plan of care.
[2020-06-05 20:00] VITALS: BP 107/67
--- NOTE | 2020-06-05 23:31 | Psych Consult Progress Note ---
Psychiatry Progress Note Psychiatry Progress Note Medications Current Medications Medications (Trade) Dose Ordered Sig/Boo Route PRN Reason Start Time Stop Time Status Last Admin Dose Admin Acetaminophen (Tylenol) 500 mg Q6HR PRN ORAL Mild Pain (Pain Scale 1-3) 05/31/20 23:45 06/30/20 23:44 Acetaminophen (Tylenol) 650 mg Q6H PRN ORAL Temp >100.5 05/31/20 23:45 06/30/20 23:44 Albuterol Sulfate (Proventil MDI) 2 puff Q4H PRN INH Shortness of Breath 06/01/20 09:15 08/30/20 09:14 Dextrose (Dextrose 50%) 25 ml Q30M PRN IV Hypoglycemia 06/01/20 00:15 08/30/20 00:14 Dextrose (Dextrose 50%) 50 ml Q30M PRN IV Hypoglycemia 06/01/20 00:15 08/30/20 00:14 Docusate Sodium (Colace) 100 mg THREE TIMES A DAY GT 06/01/20 18:00 07/01/20 17:59 06/05/20 19:05 Insulin Aspart (NovoLOG) Q6HR SUBQ 06/02/20 12:00 08/31/20 11:59 06/02/20 17:39 Lansoprazole (Prevacid) 30 mg BID GT 06/05/20 11:00 07/05/20 10:59 06/05/20 19:05 Levothyroxine Sodium (Synthroid) 50 mcg DAILY@0630 ORAL 06/02/20 06:30 07/02/20 06:29 06/05/20 05:48 Morphine Sulfate (Morphine Sulfate) 2 mg Q6HR PRN IVP Severe Pain (Pain Scale 7-10) 05/31/20 23:45 06/07/20 23:44 06/02/20 15:10 Ondansetron HCl (Zofran) 4 mg Q6H PRN IVP Nausea & Vomiting 05/31/20 23:45 06/30/20 23:44 Quetiapine Fumarate (SEROqueL) 25 mg Q8H PRN ORAL Restlessness 06/02/20 07:30 07/17/20 07:29 06/02/20 17:25 Valproic Acid (Depakene) 500 mg EVERY 12 HOURS GT 06/05/20 10:45 07/05/20 10:44 06/05/20 20:01 Neurological/Psychiatric: Reports: anxiety, depressed, emotional problems Allergies: Coded Allergies: No Known Allergies (Unverified , 05/31/20) Objective Data Height (Feet): 5 Height (Inches): 7.00 Weight (Pounds): 138 General Appearance: alert, agitated Additional Comments: lert and disoriented to situation and place. Mood is agitated. Affect is flat. Thought process, there is a paucity of thought content. Thought content, no suicidal or homicidal ideation. Cognition is impaired. Insight and judgment is impaired. Assessment/Plan Problem List: (1) Dementia with behavioral disturbance ICD Codes: F03.91 - Unspecified dementia with behavioral disturbance SNOMED: 5887338061595 Status: stable Assessment/Plan: jason talamantes seroyung prn and standing Jeff Wilkins MD Jun 05, 2020 23:31
--- NOTE | 2020-06-05 23:33 | Psych Consult Progress Note ---
Psychiatry Progress Note Psychiatry Progress Note Subjective less agitated and calmer Medications Current Medications Medications (Trade) Dose Ordered Sig/Boo Route PRN Reason Start Time Stop Time Status Last Admin Dose Admin Acetaminophen (Tylenol) 500 mg Q6HR PRN ORAL Mild Pain (Pain Scale 1-3) 05/31/20 23:45 06/30/20 23:44 Acetaminophen (Tylenol) 650 mg Q6H PRN ORAL Temp >100.5 05/31/20 23:45 06/30/20 23:44 Albuterol Sulfate (Proventil MDI) 2 puff Q4H PRN INH Shortness of Breath 06/01/20 09:15 08/30/20 09:14 Dextrose (Dextrose 50%) 25 ml Q30M PRN IV Hypoglycemia 06/01/20 00:15 08/30/20 00:14 Dextrose (Dextrose 50%) 50 ml Q30M PRN IV Hypoglycemia 06/01/20 00:15 08/30/20 00:14 Docusate Sodium (Colace) 100 mg THREE TIMES A DAY GT 06/01/20 18:00 07/01/20 17:59 06/05/20 19:05 Insulin Aspart (NovoLOG) Q6HR SUBQ 06/02/20 12:00 08/31/20 11:59 06/02/20 17:39 Lansoprazole (Prevacid) 30 mg BID GT 06/05/20 11:00 07/05/20 10:59 06/05/20 19:05 Levothyroxine Sodium (Synthroid) 50 mcg DAILY@0630 ORAL 06/02/20 06:30 07/02/20 06:29 06/05/20 05:48 Morphine Sulfate (Morphine Sulfate) 2 mg Q6HR PRN IVP Severe Pain (Pain Scale 7-10) 05/31/20 23:45 06/07/20 23:44 06/02/20 15:10 Ondansetron HCl (Zofran) 4 mg Q6H PRN IVP Nausea & Vomiting 05/31/20 23:45 06/30/20 23:44 Quetiapine Fumarate (SEROqueL) 25 mg Q8H PRN ORAL Restlessness 06/02/20 07:30 07/17/20 07:29 06/02/20 17:25 Valproic Acid (Depakene) 500 mg EVERY 12 HOURS GT 06/05/20 10:45 07/05/20 10:44 06/05/20 20:01 Allergies: Coded Allergies: No Known Allergies (Unverified , 05/31/20) Objective Data Height (Feet): 5 Height (Inches): 7.00 Weight (Pounds): 138 Additional Comments: lert and disoriented to situation and place. Mood is agitated. Affect is flat. Thought process, there is a paucity of thought content. Thought content, no suicidal or homicidal ideation. Cognition is impaired. Insight and judgment is impaired. Assessment/Plan Problem List: (1) Dementia with behavioral disturbance ICD Codes: F03.91 - Unspecified dementia with behavioral disturbance SNOMED: 9984095752442 Status: stable Assessment/Plan: seroquel jersonn and standing Jeff Wilkins MD Jun 05, 2020 23:33
[2020-06-06] VITALS: BP 105/61
[2020-06-06 04:00] VITALS: BP 109/54
[2020-06-06] MEDS: NovoLOG Insulin Flexpen SUBQ SCH (05:46)
[2020-06-06 06:38] LABS: HEMATOCRIT 29.8 % (37.0-47.0); HEMOGLOBIN 9.5 G/DL (12.0-16.0); MEAN CORPUSCULAR VOLUME 107 FL (80-99); PLATELET COUNT 169 K/UL (150-450); RED BLOOD COUNT 2.78 M/UL (4.20-5.40); RED CELL DISTRIBUTION WIDTH 15.1 % (11.6-14.8); WHITE BLOOD COUNT 7.1 K/UL (4.8-10.8)
[2020-06-06 06:46] LABS: AMYLASE 114 U/L (25-115)
[2020-06-06 07:16] LABS: ALANINE AMINOTRANSFERASE 81 U/L (12-78); ALBUMIN 2.7 G/DL (3.4-5.0); ALBUMIN/GLOBULIN RATIO 0.7 (1.0-2.7); ALKALINE PHOSPHATASE 121 U/L (46-116); ANION GAP 10 mmol/L (5-15); ASPARTATE AMINO TRANSFERASE 40 U/L (15-37); BILIRUBIN,TOTAL 0.4 MG/DL (0.2-1.0); BLOOD UREA NITROGEN 24 mg/dL (7-18); CALCIUM 8.5 MG/DL (8.5-10.1); CARBON DIOXIDE 25 MMOL/L (21-32); CHLORIDE 112 MMOL/L (98-107); CREATININE 0.9 MG/DL (0.55-1.30); PHOSPHORUS 3.1 MG/DL (2.5-4.9); POTASSIUM 3.7 MMOL/L (3.5-5.1); SODIUM 147 MMOL/L (136-145)
--- NOTE | 2020-06-06 07:35 | NUR ---
NURSE NOTES: Received report from Juan Murray RN. Patient sitting in semi-Huston's position, turned off G-tube feeding, restraints in place, Abraham cather in place, patient watching television, bed in lowest position, call light within reach, watch and clock maker and repairer rails up x 3, in no appparent distress. Addendum: 06/06/20 at 0746 by ZELDA CARRASQUILLO RN bed in lowest position, call light within reach, wheels locked.
--- NOTE | 2020-06-06 07:37 | NUR ---
HAND-OFF: Report given to Christopher Barraza RN.
[2020-06-06 08:00] VITALS: BP 107/64
--- NOTE | 2020-06-06 09:17 | Nephrology Progress Note ---
Assessment/Plan Problem List: (1) Hyponatremia syndrome (2) Hematuria (3) Pneumonia due to COVID-19 virus (4) UTI (urinary tract infection) (5) Generalized weakness Assessment 1. COVID-19 related deconditioning and general weakness. 2. Metabolic encephalopathy. 3. Hyponatremia. 4. Hyperkalemia. 5. Elevated lipase. Level of 676. 6. Hypothyroidism. Elevated TSH level. 7. Cachexia and malnourishment. 8. Macrocytic anemia. Plan Blood pressure stable Electrolyte abnormalities corrected No labs today, recheck lab tomorrow Anemia work-up noted Monitor electrolytes Per orders Subjective ROS Limited/Unobtainable: No Constitutional: Reports: malaise, weakness Objective Objective Last 24 Hour Vital Signs Date Time Temp Pulse Resp B/P (MAP) Pulse Ox O2 Delivery O2 Flow Rate FiO2 06/06/20 08:00 98.9 90 18 107/64 (78) 97 06/06/20 04:00 98.0 95 20 109/54 (72) 95 06/06/20 00:00 99.0 101 20 105/61 (76) 98 06/05/20 21:00 Room Air 06/05/20 20:00 98.8 103 24 107/67 (80) 97 06/05/20 16:00 98.6 100 18 105/58 (74) 96 06/05/20 12:00 98.0 96 20 118/70 (86) 95 Intake and Output 06/05/20 06/06/20 19:00 07:00 Intake Total 405 ml 695 ml Output Total 400 ml 500 ml Balance 5 ml 195 ml Intake Free Water 200 ml Tube Feeding 405 ml 495 ml Output Urine Total 400 ml 500 ml # Bowel Movements 1 Laboratory Tests 06/05/20 12:31: POC Whole Blood Glucose [Pending] 06/05/20 18:48: POC Whole Blood Glucose [Pending] 06/05/20 23:40: POC Whole Blood Glucose 114H 06/06/20 05:35: White Blood Count 7.1, Red Blood Count 2.78L, Hemoglobin 9.5L, Hematocrit 29.8L , Mean Corpuscular Volume 107H, Mean Corpuscular Hemoglobin 34.3H, Mean Corpuscular Hemoglobin Concent 32.0, Red Cell Distribution Width 15.1H, Platelet Count 169, Mean Platelet Volume 6.6, Neutrophils (%) (Auto) , Lymphocytes (%) (Auto) , Monocytes (%) (Auto) , Eosinophils (%) (Auto) , Basophils (%) (Auto) , Neutrophils % (Manual) [Pending], Lymphocytes % (Manual) [Pending], Platelet Estimate [Pending], Platelet Morphology [Pending], Sodium Level 147H, Potassium Level 3.7, Chloride Level 112H, Carbon Dioxide Level 25, Anion Gap 10, Blood Urea Nitrogen 24H, Creatinine 0.9, Estimat Glomerular Filtration Rate 59.2, Glucose Level 118H, Calcium Level 8.5, Phosphorus Level 3.1, Magnesium Level 2.2, Total Bilirubin 0.4, Aspartate Amino Transf (AST/SGOT ) 40H, Alanine Aminotransferase (ALT/SGPT) 81H, Alkaline Phosphatase 121H, Total Protein 6.4, Albumin 2.7L, Globulin 3.7, Albumin/Globulin Ratio 0.7L, Amylase Level 114, Lipase 316, Hepatitis A IgM Antibody [Pending], Hepatitis B Surface Antigen [Pending], Hepatitis B Core IgM Antibody [Pending], Hepatitis C Antibody [Pending] Height (Feet): 5 Height (Inches): 7.00 Weight (Pounds): 138 General Appearance: no apparent distress Cardiovascular: normal rate Respiratory/Chest: decreased breath sounds Abdomen: soft Objective No change Mendoza Ponce MD Jun 06, 2020 09:17
--- NOTE | 2020-06-06 09:23 | NUR ---
DISCHARGE PLANNING FOLLOW UP CALL MADE TO MICHELLE AT [facility]. CONFIRMED JESSICA RECEIVED PROVIDED BED ASSIGNMENT 11-C SKILLED [facility] INFORMED. [facility] COMPOUNDING PHARMACY TECHNICIAN WILL COORDINATE TRANSPORTATION.
[2020-06-06] MEDS: Docusate 100mg/10ml Liq GT SCH (09:27)
[2020-06-06] MEDS: Valproic Acid 250mg/5ml Liquid GT SCH (09:27)
--- NOTE | 2020-06-06 09:56 | NUR ---
*-*DISCHARGE PLANNED*-* PATIENT HAS BEEN ACCEPTED AND WILL BE DISCHARGED BACK TO: [facility] P: [phone] FOR NURSE TO NURSE REPORT ROOM# 11.C [facility] TRANSPORTATION SET FOR 11:30AM S/W YENNY [id number] S/W PATIENTS GRANDDAUGHTER, KERWIN PHAM, WHO IS IN AGREEMENT WITH DISCHARGE PLAN.
--- NOTE | 2020-06-06 10:02 | General Progress Note ---
Assessment/Plan Status: stable Assessment/Plan: S: poor historian O: seems agitated, PHYSICAL EXAMINATION: AT/NC , HEAD AND NECK: Atraumatic and normocephalic. CHEST: Clear to auscultation.HEART: S1, S2. Regular rate and rhythm. ABDOMEN: SoftMUSCULOSKELETAL: Atrophied musculature. Lateralized motor deficit.NEUROLOGIC: The patient is malnourished. The patient appears delirious. LABORATORY DATA: Dated 06/05/2020, reviewed ASSESSMENT: 1. COVID-19 related deconditioning and general weakness. 2. Metabolic encephalopathy. 3. Acute /chronic anemia 4. Hyponatremia. 4. Hyperkalemia. 5. Abnormal lipase. 6. Hypothyroidism. 7. Cachexia and malnourishment. 8. Macrocytic anemia. Plan: SCD in place Re check cbc Notes from Urology reviewed will defer Urological workup as an outpatient Subjective Allergies: Coded Allergies: No Known Allergies (Unverified , 05/31/20) Objective Last 24 Hour Vital Signs Date Time Temp Pulse Resp B/P (MAP) Pulse Ox O2 Delivery O2 Flow Rate FiO2 06/06/20 08:00 98.9 90 18 107/64 (78) 97 06/06/20 04:00 98.0 95 20 109/54 (72) 95 06/06/20 00:00 99.0 101 20 105/61 (76) 98 06/05/20 21:00 Room Air 06/05/20 20:00 98.8 103 24 107/67 (80) 97 06/05/20 16:00 98.6 100 18 105/58 (74) 96 06/05/20 12:00 98.0 96 20 118/70 (86) 95 Intake and Output 06/05/20 06/06/20 19:00 07:00 Intake Total 405 ml 695 ml Output Total 400 ml 500 ml Balance 5 ml 195 ml Intake Free Water 200 ml Tube Feeding 405 ml 495 ml Output Urine Total 400 ml 500 ml # Bowel Movements 1 Laboratory Tests 06/05/20 12:31: POC Whole Blood Glucose [Pending] 06/05/20 18:48: POC Whole Blood Glucose [Pending] 06/05/20 23:40: POC Whole Blood Glucose 114H 06/06/20 05:35: White Blood Count 7.1, Red Blood Count 2.78L, Hemoglobin 9.5L, Hematocrit 29.8L , Mean Corpuscular Volume 107H, Mean Corpuscular Hemoglobin 34.3H, Mean Corpuscular Hemoglobin Concent 32.0, Red Cell Distribution Width 15.1H, Platelet Count 169, Mean Platelet Volume 6.6, Neutrophils (%) (Auto) , Lymphocytes (%) (Auto) , Monocytes (%) (Auto) , Eosinophils (%) (Auto) , Basophils (%) (Auto) , Differential Total Cells Counted 100, Neutrophils % ( Manual) 63, Lymphocytes % (Manual) 23, Monocytes % (Manual) 11H, Eosinophils % ( Manual) 3, Basophils % (Manual) 0, Band Neutrophils 0, Platelet Estimate Adequate, Platelet Morphology Normal, Polychromasia 1+, Hypochromasia 1+, Anisocytosis 1+, Macrocytosis 1+, Sodium Level 147H, Potassium Level 3.7, Chloride Level 112H, Carbon Dioxide Level 25, Anion Gap 10, Blood Urea Nitrogen 24H, Creatinine 0.9, Estimat Glomerular Filtration Rate 59.2, Glucose Level 118H , Calcium Level 8.5, Phosphorus Level 3.1, Magnesium Level 2.2, Total Bilirubin 0.4, Aspartate Amino Transf (AST/SGOT) 40H, Alanine Aminotransferase (ALT/SGPT) 81H, Alkaline Phosphatase 121H, Total Protein 6.4, Albumin 2.7L, Globulin 3.7, Albumin/Globulin Ratio 0.7L, Amylase Level 114, Lipase 316, Hepatitis A IgM Antibody [Pending], Hepatitis B Surface Antigen [Pending], Hepatitis B Core IgM Antibody [Pending], Hepatitis C Antibody [Pending] Height (Feet): 5 Height (Inches): 7.00 Weight (Pounds): 138 Tiffanie Ott MD Jun 06, 2020 10:02
--- NOTE | 2020-06-06 10:53 | Pulmonology Progress Note ---
Sherri Henry CHAIR INSPECTOR AND LEVELER 06/06/20 1053: Subjective ROS Limited/Unobtainable: No Allergies: Coded Allergies: No Known Allergies (Unverified , 05/31/20) Subjective in COVID isolation, afebrile , no leukocytosis pulse ox stable on RA Objective Last 24 Hour Vital Signs Date Time Temp Pulse Resp B/P (MAP) Pulse Ox O2 Delivery O2 Flow Rate FiO2 06/06/20 09:00 Room Air 06/06/20 08:00 98.9 90 18 107/64 (78) 97 06/06/20 04:00 98.0 95 20 109/54 (72) 95 06/06/20 00:00 99.0 101 20 105/61 (76) 98 06/05/20 21:00 Room Air 06/05/20 20:00 98.8 103 24 107/67 (80) 97 06/05/20 16:00 98.6 100 18 105/58 (74) 96 06/05/20 12:00 98.0 96 20 118/70 (86) 95 Intake and Output 06/05/20 06/06/20 19:00 07:00 Intake Total 405 ml 695 ml Output Total 400 ml 500 ml Balance 5 ml 195 ml Intake Free Water 200 ml Tube Feeding 405 ml 495 ml Output Urine Total 400 ml 500 ml # Bowel Movements 1 Objective General Appearance: no apparent distress, demented thin Tunisian speaking bedridden female in NAD Lines, tubes and drains: peripheral HEENT: normocephalic, atraumatic, anicteric, PERRL Neck: supple Respiratory/Chest: lungs clear with moderate air exchange , no accessory muscle use Cardiovascular/Chest: normal rate Abdomen: non tender, soft, feeding tube /G tube , site clean, covered with dressing Extremities: no calf tenderness, no edema Neurologic: abnormal gait, alert, responsive confused a Musculoskeletal: atrophy BLE Laboratory Tests 06/05/20 12:31: POC Whole Blood Glucose [Pending] 06/05/20 18:48: POC Whole Blood Glucose [Pending] 06/05/20 23:40: POC Whole Blood Glucose 114H 06/06/20 05:35: White Blood Count 7.1, Red Blood Count 2.78L, Hemoglobin 9.5L, Hematocrit 29.8L , Mean Corpuscular Volume 107H, Mean Corpuscular Hemoglobin 34.3H, Mean Corpuscular Hemoglobin Concent 32.0, Red Cell Distribution Width 15.1H, Platelet Count 169, Mean Platelet Volume 6.6, Neutrophils (%) (Auto) , Lymphocytes (%) (Auto) , Monocytes (%) (Auto) , Eosinophils (%) (Auto) , Basophils (%) (Auto) , Differential Total Cells Counted 100, Neutrophils % ( Manual) 63, Lymphocytes % (Manual) 23, Monocytes % (Manual) 11H, Eosinophils % ( Manual) 3, Basophils % (Manual) 0, Band Neutrophils 0, Platelet Estimate Adequate, Platelet Morphology Normal, Polychromasia 1+, Hypochromasia 1+, Anisocytosis 1+, Macrocytosis 1+, Sodium Level 147H, Potassium Level 3.7, Chloride Level 112H, Carbon Dioxide Level 25, Anion Gap 10, Blood Urea Nitrogen 24H, Creatinine 0.9, Estimat Glomerular Filtration Rate 59.2, Glucose Level 118H , Calcium Level 8.5, Phosphorus Level 3.1, Magnesium Level 2.2, Total Bilirubin 0.4, Aspartate Amino Transf (AST/SGOT) 40H, Alanine Aminotransferase (ALT/SGPT) 81H, Alkaline Phosphatase 121H, Total Protein 6.4, Albumin 2.7L, Globulin 3.7, Albumin/Globulin Ratio 0.7L, Amylase Level 114, Lipase 316, Hepatitis A IgM Antibody [Pending], Hepatitis B Surface Antigen [Pending], Hepatitis B Core IgM Antibody [Pending], Hepatitis C Antibody [Pending] Current Medications Medications (Trade) Dose Ordered Sig/Boo Route PRN Reason Start Time Stop Time Status Last Admin Dose Admin Acetaminophen (Tylenol) 500 mg Q6HR PRN ORAL Mild Pain (Pain Scale 1-3) 05/31/20 23:45 06/30/20 23:44 Acetaminophen (Tylenol) 650 mg Q6H PRN ORAL Temp >100.5 05/31/20 23:45 06/30/20 23:44 Albuterol Sulfate (Proventil MDI) 2 puff Q4H PRN INH Shortness of Breath 06/01/20 09:15 08/30/20 09:14 Dextrose (Dextrose 50%) 25 ml Q30M PRN IV Hypoglycemia 06/01/20 00:15 08/30/20 00:14 Dextrose (Dextrose 50%) 50 ml Q30M PRN IV Hypoglycemia 06/01/20 00:15 08/30/20 00:14 Docusate Sodium (Colace) 100 mg THREE TIMES A DAY GT 06/01/20 18:00 07/01/20 17:59 06/06/20 09:27 Insulin Aspart (NovoLOG) Q6HR SUBQ 06/02/20 12:00 08/31/20 11:59 06/02/20 17:39 Lansoprazole (Prevacid) 30 mg BID GT 06/05/20 11:00 07/05/20 10:59 06/06/20 09:27 Levothyroxine Sodium (Synthroid) 50 mcg DAILY@0630 ORAL 06/02/20 06:30 07/02/20 06:29 06/06/20 05:57 Morphine Sulfate (Morphine Sulfate) 2 mg Q6HR PRN IVP Severe Pain (Pain Scale 7-10) 05/31/20 23:45 06/07/20 23:44 06/02/20 15:10 Ondansetron HCl (Zofran) 4 mg Q6H PRN IVP Nausea & Vomiting 05/31/20 23:45 06/30/20 23:44 Quetiapine Fumarate (SEROqueL) 25 mg Q8H PRN ORAL Restlessness 06/02/20 07:30 07/17/20 07:29 06/02/20 17:25 Valproic Acid (Depakene) 500 mg EVERY 12 HOURS GT 06/05/20 10:45 07/05/20 10:44 06/06/20 09:27 Assessment/Plan Assessment/Plan ASSESSMENT COVID infection Hematuria vs vaginal bleeding Hyponatremia CHRIS, probably due to dehydration Dysphagia, feeding by G tube DM Dementia Elevated TSH , probably hypothyroidism Elevated lipase PLAN OF CARE MS floor isolation for COVID repeated rapid COVID 06/01 positive on steroids x 3 days, steroids and Azithromycin dc since CXR clear MDI check inflam markers to acces risk for cytokine storm-> ferritin 448, CRP 2.3, LDH 206, but D dimer 16.5 DVT prophayxlis with Lovenox repeat inflam markers and CXR in am pulse ox stable on RA consider CT chest -> for prominent right paratracheal stripe seen on CXR r/o adenopathy. not emergent, can be done as OP when COVID free asp precautions, GT feeding nephro follows for hypo Na management, s/p hypertonic solution, Na stabilized GI prophylaxis abx per ID recs-Ceftriaxone UCX +Diphtheroids, contaminant abx dc get pelvic US, given hematuria , possible vaginal bleeding-> abd US not revealing urology eval appreciated, can be done further as OP monitor HH, abd US as ordered by attending trend lipase BS management with sensitive SSI TSH elevated; started on levothyroxine per attending , repeat TFT in 4 wks supportive care ask psych for management of anxiety behavior thank you for a consult! case discussed and evaluated by supervising physician! Jesus Alberto Paris MD 06/06/202: Subjective Allergies: Coded Allergies: No Known Allergies (Unverified , 05/31/20) Assessment/Plan Assessment/Plan Patient seen and examined with CHAIR INSPECTOR AND LEVELER. Agree with above A&P as it reflects our joint deliberations. Sherri Henry CHAIR INSPECTOR AND LEVELER Jun 06, 2020 10:53 Jesus Alberto Paris MD Jun 06, 2020 21:22
--- NOTE | 2020-06-06 10:55 | NUR ---
NURSE NOTES: Gave report to Ivonne plata [facility].
--- NOTE | 2020-06-06 11:25 | General Progress Note ---
Assessment/Plan Status: stable Assessment/Plan: COVID infection Hematuria vs vaginal bleeding Dysphagia, feeding by G tube DM Dementia Elevated LFTS Elevated lipase anemia abd us reviewed repeat labs stable H&H improving Lfts GTF doubt pancreatitis anemia work up Subjective Allergies: Coded Allergies: No Known Allergies (Unverified , 05/31/20) Objective Last 24 Hour Vital Signs Date Time Temp Pulse Resp B/P (MAP) Pulse Ox O2 Delivery O2 Flow Rate FiO2 06/06/20 09:00 Room Air 06/06/20 08:00 98.9 90 18 107/64 (78) 97 06/06/20 04:00 98.0 95 20 109/54 (72) 95 06/06/20 00:00 99.0 101 20 105/61 (76) 98 06/05/20 21:00 Room Air 06/05/20 20:00 98.8 103 24 107/67 (80) 97 06/05/20 16:00 98.6 100 18 105/58 (74) 96 06/05/20 12:00 98.0 96 20 118/70 (86) 95 Intake and Output 06/05/20 06/06/20 19:00 07:00 Intake Total 405 ml 695 ml Output Total 400 ml 500 ml Balance 5 ml 195 ml Intake Free Water 200 ml Tube Feeding 405 ml 495 ml Output Urine Total 400 ml 500 ml # Bowel Movements 1 Laboratory Tests 06/05/20 12:31: POC Whole Blood Glucose [Pending] 06/05/20 18:48: POC Whole Blood Glucose [Pending] 06/05/20 23:40: POC Whole Blood Glucose 114H 06/06/20 05:35: White Blood Count 7.1, Red Blood Count 2.78L, Hemoglobin 9.5L, Hematocrit 29.8L , Mean Corpuscular Volume 107H, Mean Corpuscular Hemoglobin 34.3H, Mean Corpuscular Hemoglobin Concent 32.0, Red Cell Distribution Width 15.1H, Platelet Count 169, Mean Platelet Volume 6.6, Neutrophils (%) (Auto) , Lymphocytes (%) (Auto) , Monocytes (%) (Auto) , Eosinophils (%) (Auto) , Basophils (%) (Auto) , Differential Total Cells Counted 100, Neutrophils % ( Manual) 63, Lymphocytes % (Manual) 23, Monocytes % (Manual) 11H, Eosinophils % ( Manual) 3, Basophils % (Manual) 0, Band Neutrophils 0, Platelet Estimate Adequate, Platelet Morphology Normal, Polychromasia 1+, Hypochromasia 1+, Anisocytosis 1+, Macrocytosis 1+, Sodium Level 147H, Potassium Level 3.7, Chloride Level 112H, Carbon Dioxide Level 25, Anion Gap 10, Blood Urea Nitrogen 24H, Creatinine 0.9, Estimat Glomerular Filtration Rate 59.2, Glucose Level 118H , Calcium Level 8.5, Phosphorus Level 3.1, Magnesium Level 2.2, Total Bilirubin 0.4, Aspartate Amino Transf (AST/SGOT) 40H, Alanine Aminotransferase (ALT/SGPT) 81H, Alkaline Phosphatase 121H, Total Protein 6.4, Albumin 2.7L, Globulin 3.7, Albumin/Globulin Ratio 0.7L, Amylase Level 114, Lipase 316, Hepatitis A IgM Antibody [Pending], Hepatitis B Surface Antigen [Pending], Hepatitis B Core IgM Antibody [Pending], Hepatitis C Antibody [Pending] Height (Feet): 5 Height (Inches): 7.00 Weight (Pounds): 138 General Appearance: no apparent distress EENT: normal ENT inspection Neck: supple Cardiovascular: normal rate Respiratory/Chest: decreased breath sounds Abdomen: normal bowel sounds, non tender, soft Extremities: non-tender Kenny Anaya MD Jun 06, 2020 11:25
--- NOTE | 2020-06-06 12:34 | NUR ---
NURSE NOTES: Patient discharged in stable condition with no belongings accompanied by ambulance personnel.
--- NOTE | 2020-06-06 14:14 | NUR ---
INSURANCE REVIEWS AND CLINICALS FAXED TO [facility] F: [phone]
--- NOTE | 2020-06-06 23:17 | Psych Consult Progress Note ---
Psychiatry Progress Note Psychiatry Progress Note Neurological/Psychiatric: Reports: anxiety, depressed, emotional problems Allergies: Coded Allergies: No Known Allergies (Unverified , 05/31/20) Objective Data Height (Feet): 5 Height (Inches): 7.00 Weight (Pounds): 138 Additional Comments: disoriented to situation and place. Mood is agitated. Affect is flat. Thought process, there is a paucity of thought content. Thought content, no suicidal or homicidal ideation. Cognition is impaired. Insight and judgment is impaired. Assessment/Plan Problem List: (1) Dementia with behavioral disturbance ICD Codes: F03.91 - Unspecified dementia with behavioral disturbance SNOMED: [id number] Status: stable Assessment/Plan: sermaty conley and standing Jeff Wilkins MD Jun 06, 2020 23:17
--- NOTE | 2020-06-10 13:24 | Discharge Summary ---
Discharge Summary Discharge Summary _ DATE OF ADMISSION: 05/31/2020 DATE OF DISCHARGE: 06/06/2020 DISCHARGED BY: REASON FOR ADMISSION: 85 years old female, resident of halfway facility, with past medical history of dysphagia, feeding by G-tube, diabetes mellitus, hypercholesterolemia , depression, dementia, was tested positive for COVID 19 at the facility 3 weeks ago. According to the family , patient had gross hematuria. Patient by herself reported dysuria Repeated rapid COVID testing in ED was positive as well. Sodium 123, potassium 5.3. BUN 56, creatinine 1.2. Glucose 123. Hemoglobin A1c 5.5. AST 40, ALT 61. Lipase 676. Troponin negative. TSH 8.754. Urinalysis with evidence of gross hematuria and findings suggestive of UTI Chest x-ray demonstrated no acute cardiopulmonary pathology. Noted prominent right paratracheal stripe which could represent vascular structure or lymphadenopathy. In emergency department patient received normal saline bolus . Abraham catheter was inserted without difficulties. Patient received empiric antibiotic and subsequently admitted to medical surgical floor. Pulmonary consult was requested to help with management of COVID infection CONSULTANTS: pulmonary Dr. Vera ID specialist Dr. Torres GI specialist Dr. Anaya derrick builder Dr. Ponce urologist Dr. Sun psychiatrist [facility]SE: Patient admitted to medical surgical floor to isolation room. Repeated COVID-19 on 06/01 was still positive. Patient received 3 days of steroids and azithromycin , both were discontinued since chest x-ray was clear. MDI provided as needed. Pulse oximetry remained stable on room air. Inflammatory markers were checked to assess risk for cytokine storm. Ferritin 448, CRP 2.3, LDH 206 and d-dimer 16.5. DVT prophylaxis with low molecular weight heparin provided. Recommended to consider CT chest, which can be done as outpatient after infection resolved due to finings on chest x-ray prominent right paratracheal stripe to rule out out adenopathy. Aspiration precaution maintained. G-tube feeding provided. Capacitor Pack Press Operator followed-up for hyponatremia. Patient received hypertonic solution ,and sodium stabilized. Urine culture revealed diphtheroids, likely contaminant ,and antibiotic was discontinued. Follow-up chest x-ray revealed no acute cardiopulmonary disease. Patient remained afebrile, no leukocytosis. Urologist seen and evaluated patient due to history of hematuria . BUN from 56 down to 24 creatinine remained stable. Acute kidney injury resolved Sodium stabilized from 123 up to 142. Abdominal ultrasound was very technically limited due to overlying bowel gas Hemoglobin and hematocrit were closely monitored with goal to keep hemoglobin above 7. Anemia work-up revealed stable iron and evidence of anemia of chronic disease. Hemoglobin and hematocrit remained stable , at the baseline; prior to discharge hemoglobin 9.5, hematocrit 29.8. LFT and lipase were closely monitored. Lipase trended down to normal. GI specialist doubted pancreatitis. Patient started on Synthroid due to elevated TSH. Repeat TFT in 3 to 4 weeks. Supportive care provided. Patient clinically stabilized and was ready for discharge to halfway facility for continuation of care FINAL DIAGNOSES: Recent COVID infection Hematuria Possible bleeding Hyponatremia-resolved Acute kidney injury probably due to dehydration -resolved Dysphagia, feeding by G-tube Diabetes mellitus Dementia with behavioral disturbances Elevated TSH,probably hypothyroidism Elevated lipase Anemia DISCHARGE MEDICATIONS: See Medication Reconciliation list. DISCHARGE INSTRUCTIONS: Patient was discharged to the halfway facility. Follow up with medical doctor at the facility. I have been assigned to dictate discharge summary for this account. Sherri Henry NP Jun 10, 2020 13:24
== END 2020-06-06 12:40 | DRG 137 ==
LOC: EDBD 17:46 → EMR 18:19 → 4E 19:17 → EDBEDREQ 21:20
DX: U07.1 COVID-19 (principal); J12.89 Other viral pneumonia; G93.41 Metabolic encephalopathy; E87.1 Hypo-osmolality and hyponatremia; E87.5 Hyperkalemia; Z68.21 Body mass index [BMI] 21.0-21.9, adult; E46 Unspecified protein-calorie malnutrition; N39.0 Urinary tract infection, site not specified; N17.9 Acute kidney failure, unspecified; K85.90 Acute pancreatitis without necrosis or infection, unspecified; L89.152 Pressure ulcer of sacral region, stage 2; E78.5 Hyperlipidemia, unspecified; F03.91 Unspecified dementia, unspecified severity, with behavioral disturbance; E03.9 Hypothyroidism, unspecified; E86.0 Dehydration; F32.9 Major depressive disorder, single episode, unspecified; R13.10 Dysphagia, unspecified; Z43.1 Encounter for attention to gastrostomy; R31.0 Gross hematuria; D53.9 Nutritional anemia, unspecified; N93.9 Abnormal uterine and vaginal bleeding, unspecified; F01.51 Vascular dementia, unspecified severity, with behavioral disturbance
CPT/HCPCS: 36415; 71045; 76705; 80053; 81003; 82150; 82607; 82728; 82746; 82962; 83036; 83540; 83550; 83615; 83690; 83735; 83930; 83935; 84100; 84300; 84443; 84484; 84550; 85007; 85025; 85379; 85610; 85730; 86140; 86705; 86709; 86803; 86850; 86900; 86901; 87081; 87086; 87340; 93005; 99285; J1815; U0002